=== PATIENT | male | born 1965 | race Caucasian/White ===

== ENCOUNTER → 2017-05-31 09:25 | Outpatient (CLI) | payer OTHER, SELFPAY ==
[2017-05-31 09:53] LABS: Absolute Lymphocyte Count 1.78 X10^3/ul (0.83-4.51); Absolute Neutrophil Count 5.3 X10^3/uL (2.0-7.7); Basophil# 0.04 X10^3/uL; Basophil% 0.5 % (0-1); Eosinophil# 0.35 X10^3/uL; Eosinophils% 4.4 % (0-5); Hemoglobin 14.9 g/dl (13.0-16.5); Lymphocyte # 1.78 X10^3/ul (4.0); Lymphocyte % 22.2 % (19-41); Mean Corp Hgb Conc 33.9 g/gl (32-36); Mean Corpuscular Hgb 30.6 pg (27.0-32.0); Mean Corpuscular Volume 90.3 fL (80-94); Mean Platelet Vol. 9.3 fl (6.2-12.0); Monocyte# 0.57 X10^3/uL; Monocyte% 7.1 % (0-10); Neutrophil # 5.26 X10^3/uL (2.7-7.7); Neutrophil % 65.4 % (47-70); Platelet Count 236 K/mm3 (150-450); RBC Distribution Width CV 13.2 % (11.6-14.6); RBC Distribution Width SD 43.8 fl (35.1-43.9); Red Blood Count 4.87 M/mm3 (4.6-6.2)
[2017-05-31 10:00] LABS: POSITIVE COUNT NO; POSITIVE DIFFERENTIAL NO; POSITIVE MORPHOLOGY NO
[2017-05-31 10:31] LABS: AST(SGOT) 39 U/L (15-37); Alanine Aminotransfer ALT/SGPT 60 U/L (16-61); Albumin, Serum 3.9 g/dL (3.2-5.0); Alkaline Phosphatase 102 U/L (45-117); Anion Gap 6 (5-15); BUN 17 mg/dL (7-18); BUN/Creat Ratio 20.4 RATIO (10-20); Chloride 106 mmol/L (98-107); Cholesterol 274 mg/dL (200); Creatinine, Serum 0.83 mg/dL (0.70-1.30); EST Glomerular Filtration Rate 104 mL/min (>60); Est Glom Filt Rate - Afr Amer 125 mL/min (>60); Globulin 3.9 g/dL (2.2-4.2); Glucose 110 mg/dL (74-106); High Density Lipoprotein 35 mg/dL; Potassium 3.8 mmol/L (3.5-5.1); Protein, Total 7.8 g/dL (6.4-8.2); Sodium Level 140 mmol/L (136-145); Triglycerides 191 mg/dL; Very Low Density Lipoprotein 38 mg/dL (5-40)
== END ==
PROVIDERS: Family Provider Family Medicine; PCP Family Medicine; Visit Provider Family Medicine
DX: I10 Essential (primary) hypertension (principal); R40.0 Somnolence; N52.9 Male erectile dysfunction, unspecified
CPT/HCPCS: 36415; 80053; 80061; 85025

== ENCOUNTER 2017-07-18 05:58 | Day surgery (SDC) | payer OTHER, SELFPAY ==
[2017-07-18] VITALS (15 sets, daily range): BP systolic 115–154; BP diastolic 70–100; PULSE 56–87; RESP 16–18; TEMP 36.1–36.9; O2SAT 82–100; BMI 31.4
--- NOTE | 2017-07-18 | TESH_PTH ---
PATIENT: DINESH BROWN Jr. LOC: [facility] [place] [facility] U#:[id number] AGE/SX: 51/M ROOM: RE07/18/[address]: Dr. Chelita Rahman DO : 1965 BED: DIS: 07/18/2017 SPEC #: [id number] RECD: 07/18/17 10:51 STATUS: DAVID REDylon #: [id number] WENDY: 07/18/17 00:[address]: Chelita Rahman DEPT: SURGICAL PATHOLOGY RECD BY: Tapan Padilla ENTERED: 07/18/17 10:51 SP TYPE: TENDON OTHR DR: Dr. Phylicia Strange, Tissues: Tendon and tendon sheath, NOS Procedures: Surgery Specimen Level III HEADER OPERATION: Right shoulder arthroscopy, subacromial decompression, biceps PRE-OP DIAGNOSIS: Biceps tendonitis, arthrosis of right AC joint TISSUE SUBMITTED: Biceps tendon MICROSCOPIC DIAGNOSIS Biceps tendon: A piece of dense fibroconnective tissue with reactive changes. DUYEN:danny 07/19/17 MICROSCOPIC DESCRIPTION Slides are reviewed. GROSS DESCRIPTION Received in fixative is one container labeled with the patient's name and designated biceps tendon. The specimen consists of an elongated piece of tendinous tissue measuring 5.5 x 0.8 x 0.2 cm. The entire specimen is submitted in one cassette. / DUYEN:danny 07/18/17 TC:4 CPT: 54198
--- NOTE | 2017-07-18 06:10 | EKG12_ITS ---
Test Reason : PRE OP Blood Pressure : / mmHG Vent. Rate : 075 BPM Atrial Rate : 075 BPM P-R Int : 142 ms QRS Dur : 100 ms QT Int : 408 ms P-R-T Axes : 038 022 040 degrees QTc Int : 455 ms Normal sinus rhythm with sinus arrhythmia Normal ECG Confirmed by HÉCTOR PARKER, IRWIN ([id number]), newspaper editor managing AKIL ONEIL ([id number]) on 07/20/2017 2:34:14 PM Referred By: Chelita Rahman Confirmed By:IRWIN ANAYA MD
[2017-07-18] MEDS: Cefazolin 2 GM in 0.9% Normal Saline 100 ML IV (07:21)
--- NOTE | 2017-07-18 07:31 | DCINST_ITS ---
Discharge Diet: No Restrictions - remove dressings in 4 days and apply bandaids to incision sites, may remove sling to do pendulums every hour as tolerated, do not actively flex elbow,follow up in 2 weeks in office or sooner if issues arise , Discharge Activity: May Not Drive May shower in (days): 1 Ice area for (Minutes): 20 - Every hour while awake. Weight Bearing Status: Weight bearing as tolerated Keep extremity elevated above heart level: Operative Extremity Call your doctor if your incision/area has: Continuous Slow Oozing, Sudden Increased Bleeding, Increased Pain/ Swelling, Increased Redness, Foul Smelling Discharge Call your doctor if you observe: Fever of 101 or Higher, Coldness, Increased Pain, Numbness or Tingling, Change in Color, Calf discomfort Allergies/Adverse Reactions: Allergies lisinopril Allergy (Verified 06/21/17 15:24) Anaphylaxis venom-honey bee [bee venom (honey bee)] Allergy (Verified 06/21/17 15:24) Anaphylaxis Medications to take at Discharge Escitalopram Oxalate [Lexapro] 20 mg PO DAILY 10/08/14 Amlodipine [Norvasc] 5 mg PO DAILY #30 tablet 10/10/14 Epinephrine [Epi Pen] 0.3 mg SQ UD #2 syringe 10/10/14 Atorvastatin Calcium [Lipitor] 20 mg PO QHS 07/18/17 Ondansetron [Zofran] 8 mg PO Q8H PRN PRN #20 tab 07/18/17 Oxycodone HCl/Acetaminophen [Percocet 5/325] 1 - 2 tablet PO Q6H PRN PRN 5 Days #56 tablet 07/18/17 Zolpidem Tartrate [Ambien (Generic)] 5 mg PO QHS PRN PRN #14 tablet 07/18/17 The following prescriptions were given: Oxycodone HCl/Acetaminophen [Percocet 5/325] 1 - 2 tablet PO Q6H PRN PRN 5 Days #56 tablet PRN Reason: Pain Ondansetron [Zofran] 8 mg PO Q8H PRN PRN #20 tab PRN Reason: Nausea Zolpidem Tartrate [Ambien (Generic)] 5 mg PO QHS PRN PRN #14 tablet PRN Reason: Insomnia Primary Care Physician: Phylicia Strange DO [Primary Care Provider] - Please Follow Up With: Chelita Rahman, DO - [phone]
--- NOTE | 2017-07-18 07:31 | PCM.OPRPT ---
Report of Operation Date of Procedure: 07/18/17 Pre-Operative Diagnosis: right shoulder Post-Operative Diagnosis: same Surgery/Procedure Performed:: right shoulder arthroscopy Type of Anesthesia:: General/Regional - preop interscalene block Anesthesiologist: Duane Saucedo Specimen's removed: biceps tendon Estimated Blood Loss (mL): none Fluids Replaced: 1100ml lr Description of Procedure: Preoperative note Patient is a 51-year-old male with continued right shoulder pain. Patient failed conservative treatment MRI confirms extensive bursitis. Biceps tendinitis and tendinitis and rotator cuff tendinosis. Risks benefits and alternatives surgery discussed with patient. Risks including but not limited to blood loss, blood clot, infection, neurovascular injury, failure procedure, loss of life and loss of limb. Patient is aware like proceed with right shoulder arthroscopy repair is indicated. Operative note Patient seen and examined in preoperative holding area. Right shoulder was marked. Patient received a preoperative interscalene block. Patient is brought to the operating room and placed supine on the operating room table. Signing, anesthesia, antibiotics were administered. The right shoulder was prepped and draped in usual sterile fashion after beachchair was initiated. Patient [facility] through beachchair position we did recheck his blood pressure which is stable throughout. All bony prominences were well-padded SCDs were placed on his bilateral lower extremity's. And then marked out our bony landmarks for our portal placement. Timeout was performed. We then insufflated the glenohumeral joint from the posterior aspect. We had good outflow. We then used an 11 blade to create our posterior portal. We were then able to begin our diagnostic arthroscopy. We created an anterior portal under direct visualization. The biceps insertion was quite unstable and the labrum incision was frayed. We then inserted a shaver and debrided back the unstable labrum from the anterior to the posterior aspect of the labrum. The rotator cuff was intact there were no loose bodies in the inferior recess the subscapularis anteriorly was intact as well. We then truncated the biceps tendon at its insertion and then reinserted a shaver to gently debride its insertion on the labrum. After this was done we then moved to the subacromial space. We created a lateral portal under direct visualization. There is extensive bursitis throughout. We the combination of an ablator and a shaver to resect the height uremic bursa. We then moved her distal clavicle excision. We created a trans-acromial clavicular portal. We inserted beginning of the shaver and then used a bur and resected just under 7 mm off of the distal clavicle and 3 mm off the acromion. We then co-plane the undersurface as well. We irrigated the subacromial space with copious amounts of sterile saline we coagulated all bleeders. We then moved to her biceps open biceps tenodesis. We reprepped the area and waited the allotted time. We made our incision just distal to the pec insertion. We used a 15 blade to cut through skin and tenotomy dissect down to level of the biceps sheath the biceps sheath was excised the biceps tendon was brought out of the incision with a measure the appropriate length of the biceps with the arm extended truncated the distal port piece and sent that to pathology for further evaluation. We then dissected down to the level of the periosteum used Bovie to clear off soft tissue for our pec button placement. We then oversewed the remaining biceps tendon place her button according to the [employer] pec button system. We drilled unicortical he flipped the button into the humeral shaft and then oversewed the tendon to the. Periosteum with a free needle. The incision was irrigated with copious amounts of sterile saline. The incision was closed with 2-0 Vicryl in a running 4-0 Monocryl and the portals were closed with interrupted 4-0 nylon stitches.. Sterile dressings were applied and a sling was applied. Patient tolerated procedure well and there were no complications. Patient transferred to the recovery room in stable condition. Postoperative note Pharmacy has prescriptions next Pictures given to family Follow-up in 2 weeks Call with increased pain numbness tingling or further issues arise This note was generated with [employer] software. It may contain incorrect words, spelling, and punctuation that were not noted in checking the note before signing.
[2017-07-18] MEDS: Mupirocin Ointment 22gm Tube 1 APPLIC (08:46)
[2017-07-18] MEDS: HYDROcodone Bitartrate/Apap 5/325 Tablet PO (12:14)
== END 2017-07-18 13:39 | disposition home or self-care (01) ==
LOC: SDC 05:59 → AC 06:01
PROVIDERS: Family Provider Family Medicine; PCP Family Medicine; Visit Provider Orthopaedic Surgery
PROC: (CPT 29827; principal; 2017-07-18 07:10)
DX: M75.111 Incomplete rotator cuff tear or rupture of right shoulder, not specified as traumatic (principal); M75.21 Bicipital tendinitis, right shoulder; M19.011 Primary osteoarthritis, right shoulder; G47.30 Sleep apnea, unspecified; I10 Essential (primary) hypertension
CPT/HCPCS: 01630; 29824; 29828; 64450; 88304; 93005; J7120; J2405

== ENCOUNTER 2017-12-06 13:30 | Outpatient (RCR) | payer OTHER, SELFPAY ==
--- NOTE | 2017-07-31 18:52 | HP.PTEVAL_ITS ---
Patient's Visit Information DINESH BROWN JR is a 51 year old M referred to Physical Therapy by Chelita Rahman DO with a diagnosis of R shoulder scope and biceps tenodesis 07/18. Date of Evaluation: 07/31/17 Physical Therapist: Willard Vick DPT, OC - Visit Plan Frequency: 2x /Week Duration: 3 Months Plan: 2x/week for 4 weeks then 1-2x/week for 8 weeks for. PROM elbow and shoulder taking care with biceps tenodesis. Progression of AAROM R shoulder and PROM elbow. Strength of R shoulder and postural muscles avoiding biceps stress for 2-4 more weeks other than gentle isometric. ice as needed. scar massage R biceps incision. - Subjective Subjective: Reattached biceps tendon and scraped out OA in R shoulder. 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 RC was not torn. Surgery date was 07/18/17. Been in sling with abd wedge since. Sleeps with it on. Wears it for protection. Sleeps well but sling is hard to sleep with. Has to wear it for 6 weeks total. Other precautions are if it hurts don 't do it. Works at [employer] but is off until October 14. 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 Pain prior to surgery was bad and waking him up at night. gets dressed by himself but it is a pain. Buttoning is hard. Avoids lifting with R. Is Right handed. Using L hand for ADLs. No ex yet. - Pain R shoulder Pain Intensity (Out of 10): 1 Pain Intensity Range: 0, 5 - Objective R arm in sling with abd wedge at arrival and donned and doffed independently. c /s AROM WFL, scapular AROM slow on R but WFL. Incisions seem to have healed well without any drainage today. biceps incision has moderate scar tissue underneath it palpable. AROM shoulder NT. PROM shoulder to 90 degrees flexion and abd without endfeel, stopped because patient asked. EXT rot to 45 degrees today and IR to 70 passively. Full PROM elbow extension but slow and hesitant last 15 degrees. Flexion is to 50 degrees passively and again hesitant last 10 degrees. wrist adn thumb AROM WFL and strength is good as is complex case manager strength. reflexes NT in elbow. Sensation UE WNL to gross light touch. Holds R arm very gaurded but pain is minimal today. Walks and transfers I without use R UE. L UE AROM WFL and strength 5/5 - Goals Goal 1:: Full PROM R elbow and shoulder Goal Time Frame: 2-4 Weeks Goal 2:: Full aROM R shoulder and elbow Goal Time Frame: 4-6 Weeks Goal 3:: Sleep without interruption or meds and walk with normal swinging motion of B UE. Goal Time Frame: 4-6 Weeks Goal 4:: Patient report 95% improvement in overall condition and plan to return to work Goal Time Frame: 8-12 Weeks Goal 5:: Dress I without modifications Goal Time Frame: 6-8 Weeks - Rehabilitation Potential Physical Therapy Diagnosis: R shoulder scope and bi tenodesis and resulting stiffness and soreness. Rehabilitation Potential: Good - Anticipated Interventions Patient/Client Instruction: Educate patient on: Condition, Plan of Care, Risk Factors For the Purpose of:: To decrease pain, To increase ROM, To improve nutrient delivery to tissue, To improve muscle performance and motor function Therapeutic Exercise to Include: Strength training, Passive ROM, Active ROM, Scapular Strength/Stabilization For the Purpose of:: To decrease pain, To increase ROM, To improve nutrient delivery to tissue, To improve performance and independence with ADL's, To improve ability of physical actions for home/community/work/leisure Manual Therapy Techniques to Include: Scar massage, Passive ROM For the Purpose of:: To increase ROM Cryotherapy (ice pack, ice massage): Yes For the Purpose of:: To decrease swelling/inflammation Thank you for the opportunity to evaluate your patient. For Medicare and Medicare HMO plans, please review the plan of care and approve it. It will need to be FAXED BACK to us at [phone] for Medicare purposes. Please let me know if there are questions or concerns regarding this plan of care. Physician Signature: Date:
--- NOTE | 2017-08-28 11:56 | HP.PTREVAL_ITS ---
Chelita Rahman, DO, It has been my pleasure to treat DINESH BROWN JR over the last 8 visits for R shoulder scope and biceps tenodesis 07/18. Please see the progress note below for an update on the physical therapy plan of care! Subjective: Exercises going OK. Pain 0-5/10 without pattern but better when relaxed. Saw doctor office today and doing well. May wean sling at 6 weeks. They want him to wean ibuprofen. Usually sleeping Ok. HEP: moving it, stick was too painful until today. Objective/Function: 80 active flexiona dn abd limited by pain. PROm flex adn abd 130 and 120 limited by pain again. ext rot 80 and full elbow flex adn ext. Still holds it in elbow flexion and protected. Overall doing OK progressing slowly. Very hesitant to move it. Plan Plan: 2x/week for 6 weeks for AAROM to AROM and strength of tri, shoulder and posture, care with biceps flexion and supination sstarting slowly. Progress in 4 weeks to work specific conditioning as condition allows. Goals Goal 1:: Full PROM R elbow and shoulder Goal Time Frame: 2-4 Weeks Goal Progress: Progressing Goal 2:: Full aROM R shoulder and elbow Goal Time Frame: 4-6 Weeks Goal 3:: Sleep without interruption or meds and walk with normal swinging motion of B UE. Goal Time Frame: 4-6 Weeks Goal 4:: Patient report 95% improvement in overall condition and plan to return to work Goal Time Frame: 8-12 Weeks Goal 5:: Dress I without modifications Goal Time Frame: 6-8 Weeks Anticipated Interventions Patient/Client Instruction: Educate patient on: Condition, Plan of Care, Risk Factors For the Purpose of:: To decrease pain, To increase ROM, To improve nutrient delivery to tissue, To improve muscle performance and motor function Therapeutic Exercise to Include: Strength training, Passive ROM, Active ROM, Scapular Strength/Stabilization For the Purpose of:: To decrease pain, To increase ROM, To improve nutrient delivery to tissue, To improve performance and independence with ADL's, To improve ability of physical actions for home/community/work/leisure Manual Therapy Techniques to Include: Scar massage, Passive ROM For the Purpose of:: To increase ROM Cryotherapy (ice pack, ice massage): Yes For the Purpose of:: To decrease swelling/inflammation Please do not hesitate to contact me at [phone] by phone or Fax: if you have questions or concerns regarding this new plan of care! Sincerely, Willard Vick, DPT, OC
--- NOTE | 2017-10-09 16:24 | HP.PTREVAL_ITS ---
Chelita Rahman, DO, It has been my pleasure to treat DINESH BROWN JR over the last 15 visits for R shoulder scope and biceps tenodesis 07/18. Please see the progress note below for an update on the physical therapy plan of care! Subjective: Saw doctor an she is very happy. 6 more weeks off of work and strengthening. / soreness today...feeling pretty good. Sleep is only interrupted sometimes. Back to doctor in 6 weeks. Dressing is normal and mobility is good. Using GTB at home for 2x10 Objective/Function: Full AROM without pain, LLA at 90 degrees give slight discomfort on flex adn abduction. Strength in elevated position of rotations is 3+ er adn 4- IR. Some wincing at 90 degree LLA abd. OVERALL DOING VERY WELL. NEEDS TO BE STRONGER OH FOR SAFE RETURN TO WORK. See new goal, fair prognosis. Plan Plan: WEEKLY TO PROGRESS HEP OF OH STRENGTH. NEXT SESSION OH ROTATIONS. Goals Goal 1:: Full PROM R elbow and shoulder Goal Time Frame: 2-4 Weeks Goal Progress: Goal Met Goal 2:: Full aROM R shoulder and elbow Goal Time Frame: 4-6 Weeks Goal Progress: Goal Met Goal 3:: Sleep without interruption or meds and walk with normal swinging motion of B UE. Goal Time Frame: 4-6 Weeks Goal Progress: Goal Met Goal 4:: Patient report 95% improvement in overall condition and plan to return to work Goal Time Frame: 8-12 Weeks Goal 5:: Dress I without modifications Goal Time Frame: 6-8 Weeks Goal Progress: Goal Met Goal 6:: pLAN TO RETURN TO WORK SAFELY WITH 4/5 oh ROTATION STRENGTH AND LIFT 40 # oh WITH TWO HANDS Goal Time Frame: 6-8 Weeks Goal Progress: NEW GOAL Anticipated Interventions Patient/Client Instruction: Educate patient on: Condition, Plan of Care, Risk Factors For the Purpose of:: To decrease pain, To increase ROM, To improve nutrient delivery to tissue, To improve muscle performance and motor function Therapeutic Exercise to Include: Strength training, Passive ROM, Active ROM, Scapular Strength/Stabilization For the Purpose of:: To decrease pain, To increase ROM, To improve nutrient delivery to tissue, To improve performance and independence with ADL's, To improve ability of physical actions for home/community/work/leisure Manual Therapy Techniques to Include: Scar massage, Passive ROM For the Purpose of:: To increase ROM Cryotherapy (ice pack, ice massage): Yes For the Purpose of:: To decrease swelling/inflammation Please do not hesitate to contact me at [phone] by phone or Fax: if you have questions or concerns regarding this new plan of care! Sincerely, Willard Vick, DPT, OC
--- NOTE | 2017-11-22 11:20 | HP.PTREVAL ---
Chelita Rahman, DO, It has been my pleasure to treat DINESH BROWN JR over the last 19 visits for R shoulder scope and biceps tenodesis 07/18. Please see the progress note below for an update on the physical therapy plan of care! Subjective: Saw doctor Sunday. Gets anpther 6 weeks off. Pain is OK at 1-2/10 this week, doc says that is normal. Needs more overhead strength. Sleep is OK. Life is normal at home, hunting and house work feel fine. 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 Doc wants him to be stronger OH for RTW. Objective/Function: Full aROM withotu discomfort. 5/5 strength in neutral position of elbow and rotators. At 90 degrees is 4/5 adn OH gives some pain R shoulder with flexion and abd as wella s at 90 degrees. Plan Plan: 1x/week for 6 weeks...Please answer any questions on home ex each visit and progress to machine and dumbbell based OH strength in PT adn WB strength/bodyblade Goals Goal 1:: Full PROM R elbow and shoulder Goal Time Frame: 2-4 Weeks Goal Progress: Goal Met Goal 2:: Full aROM R shoulder and elbow Goal Time Frame: 4-6 Weeks Goal Progress: Goal Met Goal 3:: Sleep without interruption or meds and walk with normal swinging motion of B UE. Goal Time Frame: 4-6 Weeks Goal Progress: Goal Met Goal 4:: Patient report 95% improvement in overall condition and plan to return to work Goal Time Frame: 8-12 Weeks Goal Progress: Progressing Goal 5:: Dress I without modifications Goal Time Frame: 6-8 Weeks Goal Progress: Goal Met Goal 6:: pLAN TO RETURN TO WORK SAFELY WITH 4/5 oh ROTATION STRENGTH AND LIFT 40# oh WITH TWO HANDS Goal Time Frame: 6-8 Weeks Goal Progress: Progressing Anticipated Interventions Patient/Client Instruction: Educate patient on: Condition, Plan of Care, Risk Factors For the Purpose of:: To decrease pain, To increase ROM, To improve nutrient delivery to tissue, To improve muscle performance and motor function Therapeutic Exercise to Include: Strength training, Passive ROM, Active ROM, Scapular Strength/Stabilization For the Purpose of:: To decrease pain, To increase ROM, To improve nutrient delivery to tissue, To improve performance and independence with ADL's, To improve ability of physical actions for home/community/work/leisure Manual Therapy Techniques to Include: Scar massage, Passive ROM For the Purpose of:: To increase ROM Cryotherapy (ice pack, ice massage): Yes For the Purpose of:: To decrease swelling/inflammation Please do not hesitate to contact me at [phone] by phone or if you have questions or concerns regarding this new plan of care! Sincerely, Willard Vick, DPT, OC
--- NOTE | 2017-12-28 12:48 | HP.PT.NRP ---
HP - Discharge Summary (1) - Patient Information DINESH BROWN JR was seen in my office for initial evaluation on 07/31/17. The following Plan of Care was established for this patient: Initial Frequency: 2x /Week Initial Duration: 3 Months - Anticipated Interventions Patient/Client Instruction: Educate patient on: Condition, Plan of Care, Risk Factors For the Purpose of:: To decrease pain, To increase ROM, To improve nutrient delivery to tissue, To improve muscle performance and motor function Therapeutic Exercise to Include: Strength training, Passive ROM, Active ROM, Scapular Strength/Stabilization For the Purpose of:: To decrease pain, To increase ROM, To improve nutrient delivery to tissue, To improve performance and independence with ADL's, To improve ability of physical actions for home/community/work/leisure Manual Therapy Techniques to Include: Scar massage, Passive ROM For the Purpose of:: To increase ROM Cryotherapy (ice pack, ice massage): Yes For the Purpose of:: To decrease swelling/inflammation This patient was last seen in our office 12/06/17. Pertinent comments regarding their Physical therapy will appear below: Pt seen 21 visits for his postrugical diagnosis adn was progressing nicely. He has not shown up for his last three visits. He was planning on a return to work around this time at his last recheck. at this point, he is I in appropriate HEP and I will discontinue due to nonattendance. At this point I will be discontinuing this patient from physical therapy. I would be happy to see this patient again in the future if found appropriate by the physician. Thank you! Willard Vick, DPT, OC
--- NOTE | 2018-01-04 13:05 | HP.PTDCSUM ---
HP - PT D/C Summary It has been my pleasure to treat DINESH BROWN JR under orders from Chelita Rahman DO, for the diagnosis of R shoulder scope and biceps tenodesis 07/18 for a total of 21 visit(s). Discharge Date: 01/04/18 Please see the following information for a summary of their discharge status. - Subjective Subjective: Doing OK, rough night last night for no apparent reason but has been good lately. HEP daily at home and going well. - Pain R shoulder Pain Intensity (Out of 10): 0 - Overall Improvement % Improvement: 80 - Objective Objective/Function: Pt has no showed last 4 visits since last reevaluation. At that time, he was doing well and considering a return to work. i will disocntinue him at this time due to nonattendance. - Goals Goal 1:: Full PROM R elbow and shoulder Goal Progress: Goal Met Goal 2:: Full aROM R shoulder and elbow Goal Progress: Goal Met Goal 3:: Sleep without interruption or meds and walk with normal swinging motion of B UE. Goal Progress: Goal Met Goal 4:: Patient report 95% improvement in overall condition and plan to return to work Goal Progress: Progressing Goal 5:: Dress I without modifications Goal Progress: Goal Met Goal 6:: pLAN TO RETURN TO WORK SAFELY WITH 4/5 oh ROTATION STRENGTH AND LIFT 40# oh WITH TWO HANDS Goal Progress: Progressing - Plan Plan: continue OH strength - D/C Information Discharge Comments: Discontinue due to nonattendance of last 4 visits since last recheck. If there are questions or concerns regarding this patient's physical therapy, please feel free to call me at [phone]. Thank you for the referral of this patient. Sincerely, Willard Vick, DPT, OC
== END 2017-12-06 19:00 | disposition home or self-care (01) ==
LOC: PT 13:30
PROVIDERS: Family Provider Family Medicine; PCP Family Medicine; Visit Provider Orthopaedic Surgery
DX: Z98.890 Other specified postprocedural states (principal)
CPT/HCPCS: 97110; 97140; 97162; 97530

== ENCOUNTER → 2018-09-13 10:35 | Outpatient (CLI) | payer OTHER, SELFPAY ==
[2018-09-13 12:48] LABS: AST(SGOT) 45 U/L (15-37); Alanine Aminotransfer ALT/SGPT 89 U/L (16-61); Albumin, Serum 3.7 g/dL (3.2-5.0); Alkaline Phosphatase 95 U/L (45-117); Cholesterol 259 mg/dL (200); High Density Lipoprotein 37 mg/dL; Protein, Total 7.7 g/dL (6.4-8.2); Triglycerides 176 mg/dL; Very Low Density Lipoprotein 35 mg/dL (5-40)
== END ==
LOC: LAB.FUTURE 10:38
PROVIDERS: Family Provider Family Medicine; PCP Family Medicine; Visit Provider Family Medicine
DX: I10 Essential (primary) hypertension (principal); E78.5 Hyperlipidemia, unspecified
CPT/HCPCS: 36415; 80061; 80076

== ENCOUNTER 2018-10-28 09:50 | Emergency (ER) | payer OTHER, SELFPAY ==
[2018-10-28 09:51] VITALS: BP 148/103; PULSE 83; RESP 17; TEMP 36.7; O2SAT 99; BMI 33.5
--- NOTE | 2018-10-28 10:23 | CT_ITS ---
STUDY: CT ABDOMEN AND PELVIS WITH CONTRAST REASON FOR EXAM: Male, 52 years old. Multiple weeks of abdominal pain RADIATION DOSAGE (If Supplied By Facility): CTDIvol = ( 17.96 ) mGy, DLP = ( 1173.97 ) mGycm TECHNIQUE: Transaxial images were obtained from the dome of the diaphragm to the symphysis pubis with oral contrast. IV/Oral Isovue 300 100 was administered. Sagittal and coronal images were reconstructed. Individualized dose optimization techniques were used for this CT. COMPARISON: None. FINDINGS: The visualized lung bases are unremarkable aside from a 5 mm noncalcified nodule in the right lung base on axial image 8.. The visualized portions of the heart are within normal limits. There is decreased attenuation of the liver consistent with steatosis. Normal gallbladder and extrahepatic biliary system. Normal spleen. Normal pancreas. Normal bilateral adrenal glands. No obstructive uropathy, there are stable bilateral renal cysts Normal visualized stomach. Normal small intestine. Normal colon. There is non-visualization of the appendix. There is diffuse atherosclerotic calcification of the abdominal aorta, without a demonstrated aneurysm. Normal inferior vena cava. Normal retroperitoneum. Normal urinary bladder. There are prostatic calcifications. Normal abdominal wall. Normal osseous structures. CT/Abdomen/Pelvis WITH Contrast IMPRESSION: 5 mm noncalcified nodule in the right lung base No suspicious solid organ abnormality, simple renal cysts No CT evidence of an acute inflammatory process Electronically Signed: Byron Ash MD at 12:29 EDT , Service support ,
--- NOTE | 2018-10-28 10:24 | ED.DCSUM_ITS ---
- ER Visit Summary Date of Service: 10/28/18 Chief Complaint: Abdominal pain History of Present Illness: The patient is a 52 M presenting with abdominal pain. Patient states this started 2 to 3 weeks ago. He states that it started gradually and has continued to worsen. Pain is in the lower abdomen. He has tried Tylenol at home with no relief. He denies nausea, vomiting, diarrhea. Denies constipation. Denies blood in his stool. Denies urinary complaints. Denies fever. Denies scrotal or testicular pain. Denies chest pain or shortness of breath. Physical Examination: Vitals are stable. Patient is afebrile. Alert no acute distress. HEENT exam is unremarkable. Neck is supple. Lungs are clear and equal bilaterally. Heart is regular rate and rhythm. Abdomen is soft bilateral lower quadrant tenderness with no guarding or rebound Extremities are unremarkable. Skin is warm and dry. No focal neurologic deficit. Remainder of exam is unremarkable. Emergency Department Course and Treatment: Patient given IV fluids, morphine, Zo chana IV. CBC, chemistries unremarkable other than glucose 147, BUN 21. Lipase 428. Urinalysis unremarkable. CT abdomen pelvis shows 5 mm noncalcified nodule in the right lung base. No suspicious solid organ abnormality, simple renal cysts. No CT evidence of an acute inflammatory process. Patient was advised of these findings and advised to follow-up with his primary care physician. On reevaluation, he is resting comfortably and requesting discharge home. He is given prescription for Bentyl. Advised to follow-up with his primary care physician. Advised to return to ED for worsening complaints. Disposition: Discharge home Impression: Abdominal pain This note was generated with [employer] dictation software. It may contain incorrect words, spelling, and punctuation that were not noted in review of the chart prior to signing ED Disposition - Plan for ED Patient: Instructions: ABDOMINAL PAIN, Unkown Cause, (Male) Prescriptions: Dicyclomine HCl [Bentyl] 20 mg PO TIDAC #20 cap Prescription Printed Referrals: Dee Dee Fall MD [Primary Care Provider] -
[2018-10-28 10:38] LABS: Red Blood Cells-Urine 0 SEEN /hpf (0-5); Squamous Epithelial Cells - UA 0 SEEN /hpf (0-5); White Blood Cells 0 SEEN /hpf (0-5)
[2018-10-28 10:42] LABS: Color, Urine Yellow (Yellow); Glucose, Dipstick Normal (Normal); Ketone-Dipstick Negative (Negative); Leukocyte Esterase-Dipstick Negative /ul (Negative); Nitrite-Dipstick Negative (Negative); Occult Blood-Urine Negative /ul (Negative); Protein-Dipstick 500 mg/dl (Negative); Specific Gravity, Urine 1.025 (1.002-1.030); Urine Bilirubin Dipstick Negative (Negative); Urine Clarity Sl. Cloudy (Clear); Urine Urobilinogen Normal (Normal)
[2018-10-28 10:48] LABS: Bacteria RARE /hpf (None Seen); Mucous, Urine 1+ /hpf (<or=2+)
[2018-10-28] MEDS: 0.9% Normal Saline 1,000 ML 1000 ML IV (10:52)
[2018-10-28] MEDS: Morphine 4 MG/ML Syringe IV (10:52)
[2018-10-28] MEDS: Ondansetron 4 MG/2 ML Vial IV (10:53)
[2018-10-28 10:55] LABS: Absolute Lymphocyte Count 2.09 X10^3/uL (0.83-4.51); Absolute Neutrophil Count 5.8 X10^3/uL (2.0-7.7); Basophil# 0.06 X10^3/uL; Basophil% 0.7 % (0-1); Eosinophil# 0.26 X10^3/uL; Eosinophils% 2.9 % (0-5); Hematocrit 44.5 % (40-54); Hemoglobin 14.6 g/dL (13.0-16.5); Lymphocyte # 2.09 X10^3/ul (4.0); Lymphocyte % 23.6 % (19-41); Mean Corp Hgb Conc 32.8 g/dL (32-36); Mean Corpuscular Hgb 29.5 pg (27.0-32.0); Mean Corpuscular Volume 89.9 fL (80-94); Mean Platelet Vol. 9.5 fl (6.2-12.0); Monocyte% 6.8 % (0-10); NRBC Flagged by Analyzer 0 % (0-5); Neutrophil # 5.76 X10^3/uL (2.7-7.7); Neutrophil % 65.2 % (47-70); Platelet Count 209 K/mm3 (150-450); RBC Distribution Width CV 12.9 % (11.6-14.6); RBC Distribution Width SD 42.3 fl (35.1-43.9); Red Blood Count 4.95 M/mm3 (4.6-6.2); White Blood Count 8.8 K/mm3 (4.4-11.0)
[2018-10-28 11:14] LABS: ALB/GLOB Ratio 0.8 RATIO (0.9-2.4); AST(SGOT) 36 U/L (15-37); Alanine Aminotransfer ALT/SGPT 58 U/L (16-61); Albumin, Serum 3.6 g/dL (3.2-5.0); Alkaline Phosphatase 100 U/L (45-117); Anion Gap 8 (5-15); BUN 21 mg/dL (7-18); BUN/Creat Ratio 25.3 RATIO (10-20); Calcium,Total 8.7 mg/dL (8.5-10.1); Chloride 108 mmol/L (98-107); Creatinine, Serum 0.83 mg/dL (0.70-1.30); EST Glomerular Filtration Rate 103 mL/min (>60); Est Glom Filt Rate - Afr Amer 125 mL/min (>60); Estimated Creatinine Clearance 98.44 ml/min; Globulin 4.3 g/dL (2.2-4.2); Glucose 147 mg/dL (74-106); Lipase 428 U/L (73-393); Potassium 3.6 mmol/L (3.5-5.1); Protein, Total 7.9 g/dL (6.4-8.2); Sodium Level 143 mmol/L (136-145)
--- NOTE | 2018-10-28 14:46 | ED.DEP ---
ED Disposition - Plan for ED Patient: Instructions: ABDOMINAL PAIN, Unkown Cause, (Male) Prescriptions: Dicyclomine HCl [Bentyl] 20 mg PO TIDAC #20 capsule Referrals: Dee Dee Fall MD [Primary Care Provider] -
[2018-10-28 14:53] VITALS: RESP 18
== END 2018-10-28 14:54 | disposition home or self-care (01) ==
PROVIDERS: Emergency Provider Emergency Medicine; Family Provider Family Medicine; PCP Family Medicine
DX: R10.30 Lower abdominal pain, unspecified (principal); I10 Essential (primary) hypertension; E78.00 Pure hypercholesterolemia, unspecified; F32.9 Major depressive disorder, single episode, unspecified; Z79.899 Other long term (current) drug therapy
CPT/HCPCS: 74177; 80053; 81001; 83690; 85025; 96361; 96374; 96375; 99284; J7030; Q9967; J2405

== ENCOUNTER → 2018-11-08 | Outpatient (CLI) | payer OTHER, SELFPAY ==
[2018-10-28 09:51] VITALS: BMI 33.5
[2018-11-08 14:53] LABS: Absolute Lymphocyte Count 1.62 X10^3/uL (0.83-4.51); Absolute Neutrophil Count 5.1 X10^3/uL (2.0-7.7); Basophil# 0.04 X10^3/uL; Basophil% 0.5 % (0-1); Eosinophil# 0.36 X10^3/uL; Eosinophils% 4.6 % (0-5); Hematocrit 47.3 % (40-54); Hemoglobin 15.2 g/dL (13.0-16.5); Lymphocyte # 1.62 X10^3/ul (4.0); Lymphocyte % 20.6 % (19-41); Mean Corp Hgb Conc 32.1 g/dL (32-36); Mean Corpuscular Hgb 29.5 pg (27.0-32.0); Mean Corpuscular Volume 91.7 fL (80-94); Monocyte# 0.71 X10^3/uL; NRBC Flagged by Analyzer 0 % (0-5); Neutrophil % 64.9 % (47-70); Platelet Count 231 K/mm3 (150-450); RBC Distribution Width CV 12.9 % (11.6-14.6); RBC Distribution Width SD 43.7 fl (35.1-43.9); Red Blood Count 5.16 M/mm3 (4.6-6.2); White Blood Count 7.9 K/mm3 (4.4-11.0)
[2018-11-08 15:34] LABS: ALB/GLOB Ratio 0.9 RATIO (0.9-2.4); AST(SGOT) 26 U/L (15-37); Alanine Aminotransfer ALT/SGPT 52 U/L (16-61); Albumin, Serum 3.7 g/dL (3.2-5.0); Alkaline Phosphatase 104 U/L (45-117); Anion Gap 5 (5-15); BUN 16 mg/dL (7-18); BUN/Creat Ratio 20.7 RATIO (10-20); Calcium,Total 8.7 mg/dL (8.5-10.1); Chloride 109 mmol/L (98-107); Creatinine, Serum 0.77 mg/dL (0.70-1.30); EST Glomerular Filtration Rate 112 mL/min (>60); Est Glom Filt Rate - Afr Amer 136 mL/min (>60); Globulin 4.2 g/dL (2.2-4.2); Glucose 115 mg/dL (74-106); Potassium 3.4 mmol/L (3.5-5.1); Protein, Total 7.9 g/dL (6.4-8.2); Rheumatoid Factor < 10.0 IU/mL (<15); Sodium Level 144 mmol/L (136-145)
[2018-11-08 17:16] LABS: Hepatitis B Surface Antibody Non-Reactive; Hepatitis B Surface Antigen Non-Reactive (Nonreactive); Hepatitis C Antibody Non-Reactive (Nonreactive)
[2018-11-12 13:06] LABS: CCP IgG Antibodies 11 units (0-19)
== END | disposition home or self-care (01) ==
LOC: LAB 14:32
PROVIDERS: Family Provider Family Medicine; PCP Family Medicine; Referring Provider Internal Medicine Rheumatology; Visit Provider Internal Medicine Rheumatology
DX: M06.4 Inflammatory polyarthropathy (principal); I10 Essential (primary) hypertension; E03.9 Hypothyroidism, unspecified; F32.9 Major depressive disorder, single episode, unspecified; G47.33 Obstructive sleep apnea (adult) (pediatric)
CPT/HCPCS: 36415; 80053; 85025; 86200; 86431; 86706; 86803; 87340

== ENCOUNTER → 2018-12-06 | Outpatient (CLI) | payer OTHER, SELFPAY ==
[2018-12-06 08:38] VITALS: BMI 33.5
[2018-12-06 13:00] LABS: AST(SGOT) 17 U/L (15-37); Alanine Aminotransfer ALT/SGPT 36 U/L (16-61); Albumin, Serum 3.5 g/dL (3.2-5.0); Alkaline Phosphatase 101 U/L (45-117); Bilirubin, Direct 0.07 mg/dL (0.00-0.30); Cholesterol 182 mg/dL (200); High Density Lipoprotein 43 mg/dL; Protein, Total 7.5 g/dL (6.4-8.2); Triglycerides 122 mg/dL; Very Low Density Lipoprotein 24 mg/dL (5-40)
== END | disposition home or self-care (01) ==
LOC: LAB.FUTURE 09:17
PROVIDERS: Family Provider Family Medicine; PCP Family Medicine; Visit Provider Family Medicine
DX: I10 Essential (primary) hypertension (principal); E78.5 Hyperlipidemia, unspecified
CPT/HCPCS: 36415; 80061; 80076

== ENCOUNTER 2018-12-27 06:04 | Day surgery (SDC) | payer OTHER, SELFPAY ==
[2018-12-06 08:38] VITALS: BMI 33.5
--- NOTE | 2018-12-06 08:45 | HP_ITS ---
Intake Vital Signs 12/06/18 Body Mass Index (BMI) 33.5 12/06/18 Height 5 ft 6 in 12/06/18 Weight: 208 lb 12/06/18 Body Mass Index (BMI) 33.5 12/06/18 Blood Pressure 142/90 H 12/06/18 Blood Pressure Location Rt brachial 12/06/18 Blood Pressure Position Sitting 12/06/18 Respiratory Rate 18 12/06/18 Pulse Rate 77 12/06/18 Pulse Source Monitor 12/06/18 Temperature 97.8 F 12/06/18 Temperature Source Oral 12/06/18 Pulse Ox 99 12/06/18 Oxygen Delivery Method room air Intake Visit Reasons: ABD PAIN Speech And Language Tutor Required: No Is patient in pain?: Yes Allergies lisinopril Allergy (Verified 12/06/18 08:35) Anaphylaxis venom-honey bee [bee venom (honey bee)] Allergy (Verified 12/06/18 08:35) Anaphylaxis Medications Escitalopram Oxalate [Lexapro] 20 mg PO DAILY 10/08/14 [History Confirmed 12/06/18] Amlodipine [Norvasc] 5 mg PO DAILY #30 tab 10/10/14 [Rx Confirmed 12/06/18] Epi Pen (for allergic rxn) [Epi Pen] 0.3 mg SQ UD #2 syringe 10/10/14 [Rx Confirmed 12/06/18] Atorvastatin Calcium [Lipitor] 20 mg PO QHS 07/18/17 [History Confirmed 12/06/18] prednisone 10 mg tablet 10 mg PO DAILY 12/06/18 [History Confirmed 12/06/18] ropinirole 0.25 mg tablet 0.25 mg PO QHS 12/06/18 [History Confirmed 12/06/18] [facility] Medical History Abdominal pain (Acute) Arthritis (Acute) History of back problems (Acute) Hypertension (Chronic) Depression (Acute) Surgical History History of foot surgery (Acute) History of tracheostomy (Acute) s/p right shoulder surgery (Acute) Family History Mother Arthritis Depression Social History (Updated 12/06/18 @ 08:45 by Jez Covington MD) Smoking Status: Former smoker alcohol intake: current alcohol intake frequency: holidays/special occasions only Alcohol type: beer, wine substance use type: does not use HPI HPI HPI: DINESH BROWN, is a 53 M who presents to the office today for HPI HPI Surgical H&P: Yes HPI: DINESH BROWN, is a 53 M who presents to the office today for For screening colonoscopy. Patient states that he has not been moving his bowels as normally. He had an episode of abdominal pain approximately a month and a half ago where he went to the emergency department where a CAT scan was obtained which was entirely normal. His girlfriend says that he has not been passing as much gas as normal. Patient states that the abdominal pain started approximately a month and a half ago but is not really sure that he was doing anything when it did. He has no triggers for the cause. ROS General General: Yes fatigue; no weight change, appetite, colon cancer, breast cancer or weakness HEENT HEENT: No difficulty swallowing, eye injury, eye surgery, swollen glands or hoarseness Endo Endocrine: No thyroid disease, diabetes mellitus, thyroid cancer, Hair loss, heat intolerance or cold intolerance Skin Skin: No rash or changing moles Breast Breast: No left breast lump, right breast lump, nipple discharge, breast pain, abnormal mammogram, abnormal US or breast enlargement Musc Musculoskeletal: Yes back problems, arthritis and rheumatoid arthritis; no gout or joint pain Cardio Cardiovascular: Yes high blood pressure; no murmur, pacemaker, heart disease, atrial fibrillation, heart attack, heart stent, palpitations, shortness of breat with exertion or chest pain Psych Psychiatric: Yes depression; no anxiety or hearing voices Resp Respiratory: No shortness of breath, No sleep apnea, No cough, No COPD, No asthma, No emphysema, No wheezing Gastro Gastrointestinal: Yes abdominal pain, No nausea or vomiting, No diarrhea, No constipation, No blood in stool, No acid reflux, No hemorrhoids, No ulcers, No gallbladder problem, No black,tarry stools Geoff Hematologic: Yes blood thinners, No blood disorders, No bleeding, No anemia, No blood clots Neuro Neurologic: No system reviewed and no additional complaints, except as docu, No as per HPI, No abnormal walking, No abnormal hearing, No abnormal movements, No abnormal speech, No behavioral changes, No burning sensations, No confusion, No seizure-like activity, No unsteadiness, No dizziness, No localized weakness, No frequent falls, No headache(s), No lack of coordination, No loss of vision, No memory loss, No numbness, No other visual disturbances, No radiating pain, No restless legs, No sensory deficit, No fainting, No tingling, No tremor(s), No weakness, No other Exam Const General: no acute distress, well developed, well hydrated Orientation: oriented to person, oriented to place, oriented to time [facility] Head: normocephalic, atraumatic Ears: external ears normal Mouth: moist mucous membranes Eyes Sclera: sclerae normal Pupils: normal by confrontation Neck Neck: no lymphadenopathy noted Neck mass: No Thyroid: thyroid normal, symmetrical Chest Chest palpation & inspection: normal inspection of the chest Breast Palpation: No nipple discharge Resp Effort & Inspection: normal respiratory effort Auscultation: clear to auscultation bilaterally Percussion: percussion normal Cardio Rate: regular rate Rhythm: regular rhythm Heart Sounds: no murmurs GI Palpation: soft, no hepatosplenomegaly, no masses, tender Rectal Exam: other Other: A small umbilical hernia is identified that is easily reducible Rectal exam deferred. Extrem General: normal to inspection, no clubbing, cyanosis or edema Assessment & Plan Problems 1. Screening for colon cancer Z12.11 Plan I have discussed the above with the patient. I have offered the patient colonoscopy for evaluation. I have explained the risks/benefits of the procedure and described the procedure. I have discussed the risks with the patient, including but not limited to: infection, bleeding, perforation of the GI tract requiring emergency surgery, inability to complete the procedure, injury to any internal organs, complications of anesthesia, etc. - the patient understands and agrees to proceed. I have answered all the patient's questions to the patient's satisfaction and the patient has no further questions. The patient has been given instructions for the colon cleansing preparation. Coding Level of Care Code Off vis,new,level 3 Diagnoses Screening for colon cancer Z12.11 12/06/18 0845 <Electronically signed by Jez quigley MD> Date _ Jez Covington MD I have re-examined the patient. There are no clinical changes since date of exam.
[2018-12-27] VITALS (7 sets, daily range): BP systolic 97–142; BP diastolic 65–87; PULSE 63–89; RESP 16–18; TEMP 36.1–36.9; O2SAT 95–99; BMI 32.1
[2018-12-27] MEDS: Lactated Ringers 1,000 ML 100 ML IV (06:57)
--- NOTE | 2018-12-27 07:36 | OP.COLON_ITS ---
Patient Name: Saw Zabala Procedure Date: 12/27/2018 7:03 AM Date of : 1965 Age: 53 Procedure: Colonoscopy Indications: Screening for colorectal malignant neoplasm Providers: Jez Covington MD Referring MD: eJz Covington MD Medicines: See the Anesthesia note for documentation of the administered medications Patient Profile: This is a 53 year old male. Refer to note in patient chart for documentation of history and physical. Last Colonoscopy: none. The patient's first colonoscopy is today. Complications: No immediate complications. Procedure: Pre-Anesthesia Assessment: - Prior to the procedure, a History and Physical was performed, and patient medications and allergies were reviewed. The patient's tolerance of previous anesthesia was also reviewed. The risks and benefits of the procedure and the sedation options and risks were discussed with the patient. All questions were answered, and informed consent was obtained. Prior Anticoagulants: The patient has taken no previous anticoagulant or antiplatelet agents. ASA Grade Assessment: II - A patient with mild systemic disease. After reviewing the risks and benefits, the patient was deemed in satisfactory condition to undergo the procedure. After I obtained informed consent, the scope was passed under direct vision. Throughout the procedure, the patient's blood pressure, pulse, and oxygen saturations were monitored continuously. The colonoscope was introduced through the anus and advanced to the cecum, identified by appendiceal orifice and ileocecal valve. The colonoscopy was performed without difficulty. The patient tolerated the procedure well. The quality of the bowel preparation was adequate to identify polyps 6 mm and larger in size. Scope In: 7:19:04 AM Scope Withdrawal Time 0 hours 7 minutes 11 seconds Scope Out: 7:31:03 AM Total Procedure Duration Time 0 hours 11 minutes 59 seconds Findings: Non-bleeding internal hemorrhoids were found during retroflexion. The hemorrhoids were mild and small. The exam was otherwise without abnormality. Impression: - Preparation of the colon was fair. - Non-bleeding internal hemorrhoids. - The examination was otherwise normal. - No specimens collected. Recommendation: - Discharge patient to home. - Resume previous diet. - Continue present medications. - Repeat colonoscopy in 5 years because the bowel preparation was suboptimal. - Return to primary care physician (date not yet determined). Procedure Code(s): --- Professional --- 43210, Colonoscopy, flexible; diagnostic, including collection of specimen(s) by brushing or washing, when performed (separate procedure) Diagnosis Code(s): --- Professional --- Z12.11, Encounter for screening for malignant neoplasm of colon K64.8, Other hemorrhoids CPT copyright 2017 [employer]. All rights reserved. The codes documented in this report are preliminary and upon medical insurance coder review may be revised to meet current compliance requirements. MD Jez Browning MD 12/27/2018 7:35:33 AM This report has been signed electronically. Number of Addenda: 0 Note Initiated On: 12/27/2018 7:03 AM
== END 2018-12-27 08:11 | disposition home or self-care (01) ==
LOC: EN 06:04 → AC 06:05
PROVIDERS: Family Provider Family Medicine; PCP Family Medicine; Referring Provider Surgery; Visit Provider Surgery
PROC: 0DJD8ZZ Inspection of Lower Intestinal Tract, Via Natural or Artificial Opening Endoscopic (ICD-10-PCS; CPT 45378; principal; 2018-12-27 06:55)
DX: Z12.11 Encounter for screening for malignant neoplasm of colon (principal); K64.8 Other hemorrhoids; Z87.891 Personal history of nicotine dependence; Z79.899 Other long term (current) drug therapy; I10 Essential (primary) hypertension; F32.9 Major depressive disorder, single episode, unspecified; M19.90 Unspecified osteoarthritis, unspecified site
CPT/HCPCS: 45378; J7120; J1610; J2405

== ENCOUNTER → 2019-02-07 15:03 | Outpatient (CLI) | payer OTHER, SELFPAY ==
[2018-12-27 06:44] VITALS: BMI 32.1
[2019-02-07 17:09] LABS: Absolute Neutrophil Count 4.8 X10^3/uL (2.0-7.7); Basophil# 0.05 X10^3/uL; Basophil% 0.6 % (0-1); Hematocrit 47.3 % (40-54); Hemoglobin 15.5 g/dL (13.0-16.5); Lymphocyte % 23.9 % (19-41); Mean Corp Hgb Conc 32.8 g/dL (32-36); Mean Corpuscular Volume 91.5 fL (80-94); Mean Platelet Vol. 9.6 fl (6.2-12.0); Monocyte# 0.71 X10^3/uL; Monocyte% 8.9 % (0-10); NRBC Flagged by Analyzer 0 % (0-5); Neutrophil # 4.84 X10^3/uL (2.7-7.7); Neutrophil % 61.1 % (47-70); Platelet Count 236 K/mm3 (150-450); RBC Distribution Width CV 13.9 % (11.6-14.6); RBC Distribution Width SD 46.6 fl (35.1-43.9); Red Blood Count 5.17 M/mm3 (4.6-6.2); White Blood Count 7.9 K/mm3 (4.4-11.0)
[2019-02-07 17:32] LABS: AST(SGOT) 25 U/L (15-37); Alanine Aminotransfer ALT/SGPT 56 U/L (16-61); Albumin, Serum 3.9 g/dL (3.2-5.0); Alkaline Phosphatase 102 U/L (45-117); Anion Gap 6 (5-15); BUN 13 mg/dL (7-18); BUN/Creat Ratio 17.5 RATIO (10-20); Calcium,Total 8.7 mg/dL (8.5-10.1); Chloride 105 mmol/L (98-107); Creatinine, Serum 0.74 mg/dL (0.70-1.30); EST Glomerular Filtration Rate 117 mL/min (>60); Est Glom Filt Rate - Afr Amer 142 mL/min (>60); Globulin 4.1 g/dL (2.2-4.2); Glucose 80 mg/dL (74-106); Potassium 3.5 mmol/L (3.5-5.1); Sodium Level 139 mmol/L (136-145)
== END ==
LOC: LAB 15:05
PROVIDERS: Family Provider Family Medicine; PCP Family Medicine; Referring Provider Internal Medicine Rheumatology; Visit Provider Internal Medicine Rheumatology
DX: M06.4 Inflammatory polyarthropathy (principal); I10 Essential (primary) hypertension; E03.9 Hypothyroidism, unspecified; F32.9 Major depressive disorder, single episode, unspecified; G47.33 Obstructive sleep apnea (adult) (pediatric); Z79.899 Other long term (current) drug therapy
CPT/HCPCS: 36415; 80053; 85025

== ENCOUNTER → 2019-03-07 09:33 | Outpatient (CLI) | payer OTHER, SELFPAY ==
[2018-12-27 06:44] VITALS: BMI 32.1
--- NOTE | 2019-03-07 09:37 | RAD_ITS ---
STUDY: SMALL BOWEL FOLLOW-THROUGH EXAMINATION. REASON FOR EXAM: Male, 53 years old. ABDOMEN PAIN X3 MONTHS. FLUOROSCOPY TIME (if supplied): ( 2 minutes and 13 seconds ) minutes/seconds TECHNIQUE: The patient ingested barium. A small bowel follow-through examination was obtained. COMPARISON: None. FINDINGS: The small bowel transit is normal. There is no evidence of intrinsic or extrinsic small bowel disease. The terminal ileum is unremarkable. IMPRESSION: Unremarkable small bowel examination. Electronically Signed: Marcus Waldrop, at 14:16 EST , Service support , CLINICAL HISTORY: Male, 53 years old. 3 month history of abdominal pain. PROCEDURE: The patient ingested barium. Multiple images of the esophagus, stomach and duodenum were obtained. FLUOROSCOPY TIME (if supplied): (2 minutes and 13 seconds.) minutes/seconds Findings: The esophagus is unremarkable. There is no evidence of esophageal obstruction. No mass lesion is seen. The stomach and duodenum are unremarkable. No evidence of ulceration. No mass lesions present. RAD/Upper GI/w Small Bowel IMPRESSION: Unremarkable air contrast upper GI series. Electronically Signed: Marcus Waldrop, at 14:19 EST , Service support ,
== END ==
LOC: RAD 09:34
PROVIDERS: PCP Family Medicine; Referring Provider Family Medicine; Visit Provider Family Medicine
DX: R10.9 Unspecified abdominal pain (principal)
CPT/HCPCS: 74246; 74248

== ENCOUNTER → 2019-04-11 16:04 | Outpatient (CLI) | payer OTHER, SELFPAY ==
[2018-12-27 06:44] VITALS: BMI 32.1
[2019-04-11 17:08] LABS: Absolute Lymphocyte Count 1.61 X10^3/uL (0.83-4.51); Absolute Neutrophil Count 3.9 X10^3/uL (2.0-7.7); Basophil# 0.05 X10^3/uL; Basophil% 0.8 % (0-1); Eosinophil# 0.31 X10^3/uL; Eosinophils% 4.8 % (0-5); Hematocrit 45.6 % (40-54); Hemoglobin 14.9 g/dL (13.0-16.5); Lymphocyte # 1.61 X10^3/ul (4.0); Lymphocyte % 24.9 % (19-41); Mean Corp Hgb Conc 32.7 g/dL (32-36); Mean Corpuscular Hgb 30.9 pg (27.0-32.0); Mean Corpuscular Volume 94.6 fL (80-94); Mean Platelet Vol. 9.8 fl (6.2-12.0); Monocyte# 0.62 X10^3/uL; Monocyte% 9.6 % (0-10); NRBC Flagged by Analyzer 0 % (0-5); Neutrophil # 3.85 X10^3/uL (2.7-7.7); Neutrophil % 59.6 % (47-70); Platelet Count 208 K/mm3 (150-450); RBC Distribution Width CV 13.6 % (11.6-14.6); RBC Distribution Width SD 46.5 fl (35.1-43.9); Red Blood Count 4.82 M/mm3 (4.6-6.2); White Blood Count 6.5 K/mm3 (4.4-11.0)
[2019-04-11 17:45] LABS: AST(SGOT) 25 U/L (15-37); Alanine Aminotransfer ALT/SGPT 45 U/L (16-61); Albumin, Serum 3.7 g/dL (3.2-5.0); Alkaline Phosphatase 90 U/L (45-117); BUN 16 mg/dL (7-18); BUN/Creat Ratio 17.8 RATIO (10-20); Calcium,Total 8.7 mg/dL (8.5-10.1); Chloride 106 mmol/L (98-107); EST Glomerular Filtration Rate 94 mL/min (>60); Est Glom Filt Rate - Afr Amer 114 mL/min (>60); Globulin 3.8 g/dL (2.2-4.2); Glucose 132 mg/dL (74-106); Potassium 3.6 mmol/L (3.5-5.1); Protein, Total 7.5 g/dL (6.4-8.2); Sodium Level 141 mmol/L (136-145)
[2019-04-11 17:46] LABS: Anion Gap 5 (5-15)
== END ==
PROVIDERS: PCP Family Medicine; Referring Provider Internal Medicine Rheumatology; Visit Provider Internal Medicine Rheumatology
DX: M06.4 Inflammatory polyarthropathy (principal); I10 Essential (primary) hypertension; E03.9 Hypothyroidism, unspecified; F32.9 Major depressive disorder, single episode, unspecified; G47.33 Obstructive sleep apnea (adult) (pediatric); Z79.899 Other long term (current) drug therapy
CPT/HCPCS: 36415; 80053; 85025

== ENCOUNTER → 2019-06-18 16:44 | Outpatient (CLI) | payer OTHER, SELFPAY ==
[2018-12-27 06:44] VITALS: BMI 32.1
[2019-06-18 17:43] LABS: Absolute Lymphocyte Count 1.41 X10^3/uL (0.83-4.51); Absolute Neutrophil Count 4.7 X10^3/uL (2.0-7.7); Basophil# 0.05 X10^3/uL; Basophil% 0.7 % (0-1); Eosinophil# 0.28 X10^3/uL; Hematocrit 42.7 % (40-54); Hemoglobin 14.4 g/dL (13.0-16.5); Lymphocyte # 1.41 X10^3/ul (4.0); Mean Corp Hgb Conc 33.7 g/dL (32-36); Mean Corpuscular Hgb 31.4 pg (27.0-32.0); Mean Platelet Vol. 9.6 fl (6.2-12.0); Monocyte# 0.62 X10^3/uL; Monocyte% 8.8 % (0-10); NRBC Flagged by Analyzer 0 % (0-5); Neutrophil # 4.66 X10^3/uL (2.7-7.7); Neutrophil % 66.1 % (47-70); Platelet Count 216 K/mm3 (150-450); RBC Distribution Width CV 13.9 % (11.6-14.6); RBC Distribution Width SD 46.5 fl (35.1-43.9); Red Blood Count 4.59 M/mm3 (4.6-6.2); White Blood Count 7.1 K/mm3 (4.4-11.0)
[2019-06-18 18:07] LABS: AST(SGOT) 29 U/L (15-37); Alanine Aminotransfer ALT/SGPT 51 U/L (16-61); Albumin, Serum 3.7 g/dL (3.2-5.0); Alkaline Phosphatase 93 U/L (45-117); Anion Gap 6 (5-15); BUN 18 mg/dL (7-18); BUN/Creat Ratio 15.7 RATIO (10-20); Calcium,Total 9.6 mg/dL (8.5-10.1); Chloride 106 mmol/L (98-107); Creatinine, Serum 1.15 mg/dL (0.70-1.30); EST Glomerular Filtration Rate 71 mL/min (>60); Est Glom Filt Rate - Afr Amer 86 mL/min (>60); Globulin 3.7 g/dL (2.2-4.2); Glucose 132 mg/dL (74-106); Potassium 3.4 mmol/L (3.5-5.1); Protein, Total 7.4 g/dL (6.4-8.2); Sodium Level 143 mmol/L (136-145)
--- OUTSIDE RECORDS SUMMARY | 2019-11-18 10:11 | XMS RPT_ITS | CCD ---
:1965 External Reference #:[id number] Author Organization [facility] Care Team Providers Name Role Phone SHERRY LI) Unavailable Unavailable TONY Unavailable Unavailable SHERRY LI) Unavailable Unavailable TONY Unavailable Unavailable TONY Unavailable Unavailable TONY Unavailable Unavailable TONY Unavailable Unavailable TONY Unavailable Unavailable TONY Unavailable Unavailable Rishabh OG Unavailable Unavailable Rishabh OG Unavailable Unavailable Allergies Reported Allergen Reaction(s) Severity Date of Onset Location [facility] Translations: [ AOF 10-24-2016 - Cl [facility] BEE STING] Cornelius Reposito ry NO KNOWN ALLERGIES [facility] Translations: [ NO KNOWN Cam pus Repository ALLERGIES] Problems Active Problems Category Problem Name Status Date Location Unclassified Unknown / UNK(Unknown) Active 11-07-2016 - [facility] ([id number]) Past or Other Problems Category Problem Name Status Date Location Other injuries and Unspecified injury of Completed 10-24-2016 - [facility] conditions due to right ankle, [place] ([id number]) external causes subsequent encounter Results Result Name Value Range Unit Interpretation Flag Date Location progress on 2016-11 PROGRESS HNO ID: [id number]: Ni Conklin 11-15-2016 [facility] Bobby MaService: (none)Author Type: [place] ([id number]) (none)Type: Progress NotesFiled: 11/15/2016 3:44 PMNote Text:PT ASSESSMENT - CASTING ROOMWilliam presents for Application of brace.Applied DonJoy Stabilizing speed Pro ankle brace to Right ankle. Patienttolerated well.Patient has been instructed in Care and proper application of brace.Patient signed DonJoy PPA electronically for billing. Patient verbalizedunderstanding.Ni Rosales Ma PROGRESS HNO ID: [id number]: Steve Conklin 11-15-2016 [facility] Emy Reyes: (none)Author Type: [place] ([id number]) PhysicianType: Progress NotesFiled: 11/15/2016 2:39 PMNote Text:FRACTURE FOLLOW-UPMrAlvaro Brown presents today for his follow-up visit from:right ankle injuryHe is four weeks post-injury and was last seen one week ago.History: his pain intensity is improved from last week, still sore tostand or walk. He is walking without fracture boot, but limps and uses acane.He reports no change in past medical AND surgical history, medications,allergies, social history, family history and review of systems since lastvisit, with the exception of the following:NonePhysical Examination:mild tenderness about the medial malleolusmoderate tenderness about the syndesmosismild tenderness about the achilles tendon insertionPositive EHL, FHL, AT, GS, Quads, and HSPositive distal pulsesNegative Rogerio's, calf tenderness or palpable cordsImpression:ankle sprain- rightsmall avulsion fracture medial talusPlan:fit for GelSight ankle brace to wear when returning to workcontinue ankle rehab exercises as directed.Follow-up:as neededDO marco Negron on 2016-11-15 CNJAIDEN Office Visit Normal 11-15-2016 Jennifer and (HANANE) ----SAW BROWN JR ([id number]) 1965 M Date Time Provider Aacffhdire32/11/17 2:20 PM STEVE REYES During Cl vickie your visit today, we recorde d the following information about you:Steve Reyes DO 11/15/2016 ([id number]) 2:39 PM SignedFRACTNAYELI RuedaAlvaro Brown presents today for his follow-up visit from:right ankle injuryHe is four weeks post- injury and was last seen one week ago.History: his pain intensity is improved from last week, sti ll sore to stand orwalk. He is walking without fracture boot, but limps and uses a cane.He reports no change in past medical ANDamp; surgical history, medications,allergies, socia l history, family history and review of systems since lastvisit, with the exception of the followi ng:NonePhysical Examination:mild tenderness about the medial malleolusmoderate tenderness about the syndesmosismild tenderness about the achilles tendon insertionPositive EHL, FHL, AT, GS, Quads, and HSPositive distal pulsesNegative Rogerio's, calf tenderness or palpable cords Impression:ankle sprain- rightsmall avulsion fracture medial talusPlan:fit for [employer] ankle brace to wear when returning to workcontinue ankle rehab exercises as directed.Follow -up:as neededJesusita Negron Ma 11/15/2016 3:44 PM SignedPT ASSESSMENT - ROLANDA Durán presents for Application of brace.Applied DonJoy Stabilizing speed Pro ankle brace to Right ankle. Patienttolerated well.Patient has been instructed in Care and proper applicati on of brace. Patientsigned DonJoy PPA electronically for billing. Patient verbalized understveto aly.Ni Goldsmith Provider: STEVE REYES V [[id number]]Allergies As of Date: 11/15/2016 Noted Allergy ReactionBEE STING 10/24/2016 10 - Anaphylaxis Comments: Yellow jackmikeDate Reviewed: 11/07/2016Reviewed by: Kaylee Krishna Ma - Fully AssessedPrimary Visit Diagno sis:Sprain of ligament of right ankle, subsequent encounter [S93.401D]Prescriptions as o f 11/15/2016 Sig: EPINEPHRINE 0.3 MG/0.3 ML INJ* Inject 0.3 mL intramuscularly* AMLODIPINE 5 MG TABLET DEXTROAMPHETAMINE-AMPHETAMINE* Take 30 mg by mouth once kae* ESCITALOPRAM 20 MG TAB LET Take 20 mg by mouth once kae* HYDROCODONE 5 MG-ACETAMINOPHE* Take 1 tablet by mouth every * IB UPROFEN 800 MG TABLETProblem List As Of Date 11/15/2016 Noted Resolved Cervicalgia [M54.2] INVALID FOR* Backache, unspecified [M54.9] INVALID FOR* Osteoarthrosis involving, or with mention o f mo*INVALID FOR* Left shoulder pain [M25.512] INVALID FOR*Letter TextWoosterDepartment of Ort fungwwjy[address], [place] [id number] WHOM IT MAY CONCERN:This is to confirm t hat Saw Brown JR had an appointment [facility] Za Vitale [facility]/15/2016 and farzad to work on 11/20/2016 with no restrictions.Sincerely yours ,Steve Reyes DOEncounter Number: [id number] Status:Closed by STEVE REYES DO V on 11/15/16 xr ankle 3v ap/lat/obl rt on 2016-11-07 XR ANKLE 3V * * *Final Report* * *DATE OF Normal 11-07-2016 [place] AP/LAT/OBL RT EXAM: Nov 07 2016 10:06AM [facility] 5297 - XR ANKLE 3V AP/LAT/OBL RT [place] / ([id number]) REASON: Unspecified injury of right ankle, subsequent encounter * * * * Physician Interpretation * * * * HISTORY: Trauma. Ankle painCOMPARISON: Comparison is made to prior ankle study dated 10/24/2016RESULT: Frontal, lateral and oblique views of the right ankle demonstrate bimalleolar soft tissue swelling. There is no underlying bony abnormality. The ankle mortise and syndesmosis are intact.IMPRESSION: Negative fracture. Bimalleolar soft tissue swelling.Assembly Supervisor: HUSAM Transcribe Date/Time: Nov 07 2016 3:08PDictated by : GILBERTO ALAMO MDThis examination was interpreted and the report reviewed and electronically signed by: GILBERTO ALAMO MD on Nov 07 2016 3:09PM [id number] progress on 2016-11 PROGRESS HNO ID: [id number]: Diane Conklin 11-07-2016 [facility] StobbeService: (none)Author Amol ([id number]) Type: (none)Type: Progress NotesFiled: 11/07/2016 10:07 AMNote Text: Radiology Service Progress NotePATIENT NAME: Saw Brown JRMRN: [id number] OF SERVICE: November 07, 2016TIME: 10:06 AMPATIENT IDENTITY VERIFICATION COMPLETED USING TWO (2) METHODS: Patientconfirmed name verbally and Date of .PATIENT GENDER DATA: MalePATIENT RELEVANT IMPLANT DATA REVIEWED: Not ApplicableRADIOLOGY DEPARTMENT: General X-ray: Exam(s) Completed: Lower ExtremityX-Ray(s): Ankle, Right:PERIPHERAL IV DATA: Not applicableSIGNED BY: Diane Torres RT(R)November 07, 2016 10:06 AM PROGRESS HNO ID: [id number]: Steveguerita Conklin 11-07-2016 [facility] Noel Reyesice: (none)Author Amol ([id number]) Type: PhysicianType: Progress NotesFiled: 11/07/2016 10:55 AMNote Text:FRACTURE FOLLOW-UPMrAlvaro Brown presents today for his follow-up visit from:Right ankleHe is 3 weeks and 6days post-injury and was last seen three weeks ago.History: his pain intensity is 4/10. The patient denies swelling, warmth,discharge, drainage, fevers, chills, sweats. He reports compliance withtherapy, sling/splint/ambulatory device/dressing/wound care, and the useof medications.He reports no change in past medical AND surgical history, medications,allergies, social history, family history and review of systems since lastvisit, with the exception of the following:NoneRadiographs:Physic al Examination:mild tenderness about the medial malleolusmoderate tenderness about the lateral malleolusmild tenderness about the talar domePositive EHL, FHL, AT, GS, Quads, and HSPositive distal pulsesNegative Rogerio's, calf tenderness or palpable cordsImpression:Right ankle sprain with injury to ATF and CF ligamentsclosed fracture talus with no displacementPlan:continue in fracture bootmay graduate off of crutches as symptoms allowbegin ROM exercises- handout givenrecheck in 1 week.Steve Reyes DO PROGRESS HNO ID: [id number]: Kaylee Conklin 11-07-2016 [facility] Erendira MaService: (none)Author Amol ([id number]) Type: (none)Type: Progress NotesFiled: 11/07/2016 10:55 AMNote Text:AMB ROOMING INTAKE FLOWSHEET DATARisk ScreeningDo you have concerns about personal safety or safety in the home?: NoPainPain Score: 4/10Pain Location: Ankle-RightDescription: Aching, ThrobbingDuration Amount of Time: (ongoing)Frequency: IntermittentIntervention: SplintingPatient here today for 3 week 6 days post right ankle sprain. Arriveswith walking boot and using crutches. Still having a good bit of swelling. cnov on 2016-11-07 CNOV Office Visit Normal 11-07-2016 Jennifer and (HANANE) ----SAW BROWN JR ([id number]) 1965 M Date Time Provider Kmasejamaz35/3/17 9:00 AM [facility] we recorde d the following information about you:Kaylee Krishna Ma 11/07/2016 10:55 ([id number]) AM SignedAMB ROOMING INTAKE FLOWSHEET DATARisk ScreeningDo you have concerns about personal safety or safety in the home?: NoPa inPain Score: 4/10Pain Location: Ankle- RightDescription: Aching, ThrobbingDuration Amount of Time: (ongoing)Frequency: IntermittentIntervention: SplintingPatient here today for 3 week 6 days post right ankle sprain. Arrives withwalking boot and using crutches. Still having a good bit of s welling.Steve Reyes DO 11/07/2016 10:55 AM SignedFRACTURE FOLLOW-UPMrAlvaro Brown presents today for his follow-up visit from:Right ankleHe is 3 weeks and 6days post-injury and was last see n three weeks ago.History: his pain intensity is 4/10. The patient denies swelling, warmth,disc harge, drainage, fevers, chills, sweats. He reports compliance withtherapy, sling/splint/am bulatory device/dressing/wound care, and the use ofmedications.He reports no change in past me dical ANDamp; surgical history, medications,allergies, social history, family history and review of systems since lastvisit, with the exception of the following:NoneRadiographs:Ph ysical Examination:mild tenderness about the medial malleolusmoderate tenderness about the lateral malleolusmild tenderness about the talar domePositive EHL, FHL, AT, GS, Quads, and HSPositive di stal pulsesNegative Rogerio's, calf tenderness or palpable cordsImpression:Right ankle sprain with injury to ATF and CF ligamentsclosed fracture talus with no displacementPlan:continue in fracture bootmay graduate off of crutches as symptoms allowbegin ROM exercises- handout givenrec tabatha in 1 week.Mine Negron Provider: STEVE REYES V [[id number]]Allergies As of Date: 11/07/2016 Noted Allergy ReactionBEE STING 10/24/2016 10 - Anaphylaxis Comments: Yellow jacketsDate Reviewed: 11/07/2016Reviewed by: Kaylee Krishna Ma - Fully AssessedReason for Visit: Es tablished Patient [175] Cmt: 3 week 6 days post right ankle sprainPrimary Visit Diagnosi s:Closed avulsion fracture of right talus, with routine healing, subsequent encounter [S92.15 1D] Other Visit Diagnosis:Sprain of ligament of right ankle, subsequent encounter [S93.401D]Prescriptions as of 11/07/2016 Sig: AMLODIPINE 5 MG TABLET DEXTROAMPHETAMINE-AMPHETAMIN E* Take 30 mg by mouth once kae* ESCITALOPRAM 20 MG TABLET Take 20 mg by mouth once kae* IBUPROFE N 800 MG TABLET EPINEPHRINE 0.3 MG/0.3 ML INJ* Inject 0.3 mL intramuscularly* HYDROCODONE 5 MG-ACETAMINOPHE* Take 1 tablet by mouth every *Medication notes this encounter HYDROCODONE 5 MG-A CETAMINOPHEN 325 MG TABLET >> Kaylee Krishna Ma 11/07/2016 9:45 AM >> KAYLEE KRISHNA MA Nov 9:45 AM Course completed.Problem List As Of Date 11/07/2016 Noted Resolved Cervicalgia [ M54.2] INVALID FOR* Backache, unspecified [M54.9] INVALID FOR* Osteoarthrosis involving, or with mention of mo*INVALID FOR* Left shoulder pain [M25.512] INVALID FOR* 203Encounter Status:Closed by TONY STEVE Sarah on 11/07/16 xr ankle 3v ap/lat/obl rt on 2016-10-24 XR ANKLE 3V * * *Final Report* * *DATE OF Normal 10-24-2016 [facility] AP/LAT/OBL RT EXAM: Oct 24 2016 11:00AM [facility] 5297 - XR ANKLE 3V AP/LAT/OBL RT [place] / ([id number]) REASON: Unspecified injury of left ankle, subsequent encounter * * * * Physician Interpretation * * * * HISTORY: Pt rolled his right ankle x 1 week ago. Continued right lateral ankle pain.. Unspecified injury of left ankle, subsequent encounter .TECHNIQUE: XR ANKLE 3V AP/LAT/OBL RT Laterality: RIGHT Number of different views (projections): 3COMPARISON: NoneRESULT:There is a tiny area of mineralization near the lateral margin of the talus just below the lateral malleolus. Ankle mortise alignment appears preserved. There is soft tissue swelling especially near the lateral malleolus.-IMPRESSION:Soft tissue swelling especially laterally. Possible small avulsion fracture from the lateral aspect of the talus.Assembly Supervisor: HUSAM Transcribe Date/Time: Oct 24 2016 2:36PDictated by : SANCHO KEMP MDThithi examination was interpreted and the report reviewed and electronically signed by: SANCHO KEMP MD on Oct 24 2016 2:38PM [id number] progress on 2016-10 PROGRESS HNO ID: [id number]: Kaylee Kingston Normal 10-24-2016 [facility] Erendira MaService: (none)Author Amol ([id number]) Type: (none)Type: Progress NotesFiled: 10/24/2016 11:41 AMNote Text:PT ASSESSMENT - CASTING ROOMWilliam presents for Application of boot.Applied high fracture walker to Right foot. Patient electronicallysigned Alejandro DIEGO.Patient has been instructed in Care and proper application of brace.Printed instructions were sent home with patient.Kaylee Krishna Ma PROGRESS HNO ID: [id number]: Leah Tyler Normal 10-24-2016 [facility] (Rt) Arcelia Galvez: Amol ([id number]) (none)Author Type: TechnicianType: Progress NotesFiled: 10/24/2016 10:50 AMNote Text: Radiology Service Progress NotePATIENT NAME: Saw Brown JRMRN: [id number] OF SERVICE: October 24, 2016TIME: 10:35 AMPATIENT IDENTITY VERIFICATION COMPLETED USING TWO (2) METHODS: Patientconfirmed name verbally and Date of .PATIENT GENDER DATA: MalePATIENT RELEVANT IMPLANT DATA REVIEWED: Not ApplicableRADIOLOGY DEPARTMENT: General X-ray: Exam(s) Completed: Lower ExtremityX-Ray(s): Ankle, Right:PERIPHERAL IV DATA: Not applicableSIGNED BY: Leah Galvez, RTSept2016 10:35 AM PROGRESS HNO ID: [id number]: Steve Conklin 10-24-2016 [facility] Noel Reyesice: (none)Author Amol ([id number]) Type: PhysicianType: Progress NotesFiled: 10/24/2016 11:32 AMNote Text:HPI:Saw Brown JR presents with a chief complaint of pain over the RightAnkle. Relating it occurred 6 days ago when he was at home, stepped outof his shed onto a role of tar paper and rolled his ankle, and has beenpainful since that time. Mr. Brown further relates aching pain is worsewith ambulation and improved with rest. He has been seen in the ER.X-rays were negative for fracture(s)..ROS:Constitutional: denies N/V/F.Eyes, Ears, Nose AND Throat: denies blurred vision, difficulty eating ortinnitus.Cardiovascular: denies MD, murmurs, HTNGI: denies diarrhea / constipationGU: denies incontinence / polyuriaDermatology: no ulcers or open lesionsMusculoskeletal: see HPIRespiratory: denies asthma; emphysema; pneumoniaPsychiatric: denies anxiety; depressionEndocrine: denies thyroid disease or diabetes.PMH:No past medical history on file.MEDICATIONS:Current Outpatient Prescriptions:EPINEPHrine (EPIPEN, AUVI-Q) 0.3 mg/0.3 mL auto-injector Inject 0.3 mLintramuscularly as needed. Disp: Rfl: 0amLODIPine (NORVASC) 5 mg tablet Disp: Rfl: 0dextroamphetamine-amphetamine (ADDERALL XR) 30 mg 24 hr capsule Take 30 mgby mouth once daily. Disp: Rfl: 0escitalopram oxalate (LEXAPRO) 20 mg tablet Take 20 mg by mouth oncedaily. Disp: Rfl: 0HYDROcodone-acetaminophen (NORCO) 5-325 mg per tablet Take 1 tablet bymouth every 6 hours as needed. Disp: Rfl: 0ibuprofen (MOTRIN) 800 mg tablet Disp: Rfl: 0No current facility-administered medications for this visit.ALLERGIES:ALLERGIESAllergen Reactions- Bee Sting Anaphylaxis Yellow jacketsLOWER EXTREMITY EXAM:VASC:Palpable pedal pulses bilateral; skin temperature warm to cool fromproximal tuberosity to distal digits. Edema noted on Right Ankle. Pedalhair growth noted bilateral.DERM:Ecchymosis around the lateral heel / ankle and around the medical heel /ankle and there is no evidence of skin tissue breakdown noted at thistime. No interdigital maceration or open lesions noted.ORTHO:Pain on palpation over the ATFL, distal fibula of the Right Ankle area.Pain with dorsiflexion / plantarflexion of the foot and inversion /eversion of the foot of affected ankle. Anterior draw test is negative.Palpation over the 5th metatarsal base produced no pain. ROM of ankle /foot on contralateral side WI within normal limits.NEURO:Able to discern between light and dull touch. Protective sensation usingSWMF 5.07 is within normal limits. Vibratory sensation tested over 1stMTPJ b/l are within normal limits.RADIOGRAPH:No acute fractures noted, medial, lateral and anterior gutter spacecongruous.ASSESSMENT:Right Ankle sprain with injury to the ATFL.TREATMENT:Reviewed x-ray findings and treatment options with patient., Weightbearing staus: Patient allowed to be weight bearing on affected side infracture boot and F/U in 2 weeks for re-evaluation, future plans mayconsist of Physical Therapy consultSteve Reyes, DO PROGRESS HNO ID: [id number]: Kaylee Kingston Normal 10-24-2016 [facility] Erendira MaService: (none)Author Amol ([id number]) Type: (none)Type: Progress NotesFiled: 10/24/2016 11:32 AMNote Text:AMB ROOMING INTAKE FLOWSHEET DATARisk ScreeningDo you have concerns about personal safety or safety in the home?: NoPainPain Score: 610Pain Location: Ankle-RightDescription: ThrobbingDuration Amount of Time: 6Duration Units: DaysFrequency: ContinuousIntervention: MedicationPatient here today for evaluation of right ankle sprain x 6 days. Stateshe rolled his ankle when coming out of his shed. [facility]. No [facility] x-ray. He has been using CHRISTOPH wrapfor compression and walking with assistance of crutches. Has been nonweight bearing. cnov on 2016-10-24 CNOV Office Visit Normal 10-24-2016 Jennifer and (HANANE) ----SAW BROWN JR ([id number]) 1965 M Date Time Provider Department10/24/16 9:40 AM STEVE REYES During Caitlyn cordova your visit today, we recorde d the following information about you:Kaylee Krishna Ma 10/24/2016 11:32 ([id number]) AM SignedAMB ROOMING INTAKE FLOWSHEET DATARisk ScreeningDo you have concerns about personal safety or safety in the home?: NoPa inPain Score: 6/10Pain Location: Ankle-RightDescription: ThrobbingDuration Amount of Time: 6Duration Units: DaysFrequency: ContinuousIntervention: MedicationPatient here today for evaluation of right ankle sprain x 6 days. States herolled his ankle when coming out of his shed. He was seen at [facility] ER and thenagain at Urgent Care. No [facility] x-ray. He has been using CHRISTOPH wrap forcompression and walking with assistance of crutches. Has been non weightbearing.Steve escoto DO 10/24/2016 11:32 AM SignedHPI:Saw Brown JR presents with a chief complaint of pain ov er the RightAnkle. Relating it occurred 6 days ago when he was at home, stepped out of hisshed onto a role of tar paper and rolled his ankle, and has been painful sincethat time. Mr. Vj patel relates aching pain is worse with ambulation andimproved with rest. He has been seen in e ER. X-rays were negative forfracture(s)..ROS:Constitutional: denies N/V/F.Eyes, Ears, Nose ANDam p; Throat: denies blurred vision, difficulty eating ortinnitus.Cardiovascular: d enies MD, murmurs, HTNGI: denies diarrhea / constipationGU: denies incontinence / polyuriaDerma tology: no ulcers or open lesionsMusculoskeletal: see HPIRespiratory: denies asthma; emphysema; pn eumoniaPsychiatric: denies anxiety; depressionEndocrine: denies thyroid disease or diabetes.PMH:No p ast medical history on file.MEDICATIONS:Current Outpatient Prescriptions:EPINEPHrine (E PIPEN, AUVI-Q) 0.3 mg/0.3 mL auto-injector Inject 0.3 mLintramuscularly as needed. Disp: Rfl: 0amLOD IPine (NORVASC) 5 mg tablet Disp: Rfl: 0dextroamphetamine-amphetamine (ADDERALL XR) 30 mg 24 hr ca psule Take 30 mg bymouth once daily. Disp: Rfl: 0escitalopram oxalate (LEXAPRO) 20 mg tablet Take 20 mg by mouth once daily.Disp: Rfl: 0HYDROcodone- acetaminophen (NORCO) 5-325 mg per tablet Take 1 t ablet by mouthevery 6 hours as needed. Disp: Rfl: 0ibuprofen (MOTRIN) 800 mg tablet Disp: Rfl: 0No current facility-administered medications for this visit.ALLERGIES:ALLERGIESAll ergen Reactions- Bee Sting Anaphylaxis Yellow jacketsLOWER EXTREMITY EXAM:VASC:Palpable pedal pul ses bilateral; skin temperature warm to cool from proximaltuberosity to distal digits. Edema noted o n Right Ankle. Pedal hair growthnoted bilateral.DERM:Ecchymosis around the lateral heel / ankle and around the medical heel / ankleand there is no evidence of skin tissue breakdown noted at this time . Nointerdigital maceration or open lesions noted.ORTHO:Pain on palpation over the ATFL, dis dustin fibula of the Right Ankle area.Pain with dorsiflexion / plantarflexion of the foot a nd inversion / eversion ofthe foot of affected ankle. Anterior draw test is negative. Palpation overthe 5th metatarsal base produced no pain. ROM of ankle / foot on contralateralside WI within normal limits.NEURO:Able to discern between light and dull touch. Protective sensation using S WMF5.07 is within normal limits. Vibratory sensation tested over 1st MTPJ b/l arewithin normal li mits.RADIOGRAPH:No acute fractures noted, medial, lateral and anterior gutter space congruous.ASSES SMENT:Right Ankle sprain with injury to the ATFL.TREATMENT:Reviewed x-ray findings and treatment options with patient., Weight bearingstaus: Patient allowed to be weight bearing on affected s kalani in fracture bootand F/U in 2 weeks for re- evaluation, future plans may consist of PhysicalThera py consultGem Negron Ma 10/24/2016 11:41 AM SignedPT ASSESSMENT - ROLANDA Durán presents for Application of boot.Applied high fracture walker to Right foot. David fields electronically signedDon Myrna DIEGO.Patient has been instructed in Care and proper application of br christoph. Printedinstructions were sent home with patient.Kaylee Goldsmith Provider: MAXX LI ([facility]) [[id number]]Allergies As of Date: 10/24/2016 Noted Allergy ReactionBEE STING 10/24/2016 10 - Anaphylaxis Comments: Yellow jacketsDate Reviewed: 10/24/2016Reviewed by: Kaylee Krishna Ma - Fully AssessedReason for Visit: New Patient [172] Cmt: Right ankle sprain REF: Maninder Estrada ingPrimary Visit Diagnosis:Sprain of ligament of right ankle, subsequent encounter [S93.40 1D] Other Visit Diagnosis:Ankle injury, left, subsequent encounter [S99.912D]Order(s):XR ANKLE GENERAL 3V AP/LAT/OBL RT [[id number]] Order #: [id number] FUTUREPrescriptions as of Sig: EPINEPHRINE 0.3 MG/0.3 ML INJ* Inject 0.3 mL intramuscularly* AMLODIPINE 5 MG TABLET DEXTROAMPHETAMINE-AMPHETAMINE* Take 30 mg by mouth once kae* ESCITALOPRAM 20 MG TAB LET Take 20 mg by mouth once kae* HYDROCODONE 5 MG-ACETAMINOPHE* Take 1 tablet by mouth every * IB UPROFEN 800 MG TABLETProblem List As Of Date 10/24/2016 Noted Resolved Cervicalgia [M54.2] INVALID FOR* Backache, unspecified [M54.9] INVALID FOR* Osteoarthrosis involving, or with mention o f mo*INVALID FOR* Left shoulder pain [M25.512] INVALID FOR* Status:Closed by STEVE REYES DO, V on 10/24/16 progress on 2016-10 PROGRESS HNO ID: [id number]: aMxx (Ivory) Rubin 10-22-2016 [place] Flynn: (none)Author Type: Nurse Clinic PractitionerType: Progress NotesFiled: [place]au 10/22/2016 2:01 PMNote Text:HPIHPI ([id number]) Saw Brown JR is a 50 year old male who presents today for CC ofsprain of right ankle.3 days ago and was seen in ER, had xray performedand no brake. Swelling and pain are worse now than was when happened.Denies numbness/tingling in right foot/ankleReview of SystemsConstitutional: Negative for chills, fever and weight loss.No past medical history on file.No past surgical history on file.ALLERGIES Review of patient's allergies indicates no known allergies.MEDICATIONSamLODIPine (NORVASC) 5 mg tabletdextroamphetamine-amphetamine (ADDERALL XR) 30 mg 24 hr capsule Take 30 mgby mouth once daily.escitalopram oxalate (LEXAPRO) 20 mg tablet Take 20 mg by mouth oncedaily.HYDROcodone-acetaminophen (NORCO) 5-325 mg per tablet Take 1 tablet bymouth every 6 hours as needed.ibuprofen (MOTRIN) 800 mg tabletNo family history on file.Social HistorySubstance Use Topics- Smoking status: Former Smoker- Smokeless tobacco: Not on file- Alcohol use Not on fileBlood pressure 132/92, pulse 78, temperature 36.8 ?C (98.3 ?F),temperature source Tympanic, resp. rate 18, weight 90.3 kg (199 lb).Physical ExamMusculoskeletal: Right ankle: He exhibits decreased range of motion and swelling. Heexhibits no ecchymosis, no deformity, no laceration and normal pulse.Tenderness. Lateral malleolus, medial malleolus, AITFL, CF ligament,posterior TFL and head of 5th metatarsal tenderness found. No proximalfibula tenderness found. Achilles tendon normal.ASSESSMENT/PLAN:1. Sprain of ligament of right ankle, subsequent encounter - ICD9: V58.89,845.00, ICD10: S93.401D-Discussed RICE treatment-Discussed utilizing Ice-keep non-weight baring until seen by orthopedic provider.-Christoph wrap applied- CONSULT TO ORTHOPAEDICS- in 3-5 daysPrescription instructions reviewed with patient as applicable. Patientadvised if symptoms do not improve or if symptoms worsen sooner, tocontact the office for further evaluation by either myself or [facility] physician. Potential red flag symptoms discussed with thepatient. Reviewed appropriate action plan to take if red flag symptomsoccur. Patient agreeable to treatment plan.IVORY Valentin on 2016-10-22 CNOV Office Visit Normal 10-22-2016 Jennifer and (UCWSTR) --------SAW BROWN JR ([id number]) 1965 M Date Time Provider Department10/22/16 1:00 PM MAXX LI) [facility] [place] and During your visit today, we recorded the following information about you: Temperature Pulse Respiration (46992) Blood pressure 98.3 degrees 78/minute 18/minute 132/92 Weight 90.3 kgMaxx Li CNP 10/22/2016 2:01 PM SignedHPIHPI Saw kemp JR is a 50 year old male who presents today for CC ofsprain of right ankle.3 days ago and was see n in ER, had xray performed and nobrake. Swelling and pain are worse now than was when happened. Eduardo esnumbness/tingling in right foot/ankleReview of SystemsConstitutional: Negative for chills, fever a nd weight loss.No past medical history on file.No past surgical history on file.ALLERGIES Review of niharika spear's allergies indicates no known allergies.MEDICATIONSamLODIPine (NORVASC) 5 mg tabletdextroa mphetamine-amphetamine (ADDERALL XR) 30 mg 24 hr capsule Take 30 mg bymouth once daily.escitalopram oxal ate (LEXAPRO) 20 mg tablet Take 20 mg by mouth once daily.HYDROcodone-acetaminop hen (NORCO) 5-325 mg per tablet Take 1 tablet by mouthevery 6 hours as needed.ibuprofen (MOTRIN) 80 0 mg tabletNo family history on file.Social HistorySubstance Use Topics- Smoking status: Former Smoke r- Smokeless tobacco: Not on file- Alcohol use Not on fileBlood pressure 132/92, pulse 78, temperatur e 36.8 ?C (98.3 ?F), temperaturesource Tympanic, resp. rate 18, weight 90.3 kg (199 lb).Physical ExamMus culoskeletal: Right ankle: He exhibits decreased range of motion and swelling. Heexhibits no ecch ymosis, no deformity, no laceration and normal pulse.Tenderness. Lateral malleolus, medial malleolus, AITFL, CF ligament, posteriorTFL and head of 5th metatarsal tenderness found. No proximal fibula te ndernessfound. Achilles tendon normal.ASSESSMENT/PLAN:1. Sprain of ligament of right ankle, subsequent e ncounter - ICD9: V58.89,845.00, ICD10: S93.401D- Discussed RICE treatment-Discussed utilizin g Ice-keep non-weight baring until seen by orthopedic provider.-Christoph wrap applied- CONSULT TO ORTHOPAE DICS- in 3-5 daysPrescription instructions reviewed with patient as applicable. Patient advisedi f symptoms do not improve or if symptoms worsen sooner, to contact the officefor further evaluation by either myself or their primary care physician.Potential red flag symptoms discussed with the patient. Reviewed appropriateaction plan to take if red flag symptoms occur. Patient agreeable to treatmentplan.Roel Valentin CNP 10/22/2016 1:32 PM SignedASSESSMENT/PLAN:1. Spr ain of ligament of right ankle, subsequent encounter - ICD9: V58.89,845.00, ICD10: S93.401D-Discussed RI CE treatment-Discussed utilizing Ice-keep non- weight baring until seen by orthopedic provider.-Christoph wra p applied- CONSULT TO ORTHOPAEDICS- in 3-5 daysReferring Provider: SELF [[id number]]Allergies As of Date: 0 10/22/2016(No Known Allergies)Date Reviewed: 10/22/2016Reviewed by: Maxx Bronson) - Fully AssessedR trudy for Visit: Ankle Injury [1955] Cmt: right ankle pain after rolling it on Primary Visit Debbie gnosis:Sprain of ligament of right ankle, subsequent encounter [S93.401D]Order(s):CONSULT T O ORTHOPAEDICS [9026] Order #: [id number]: 1Prescriptions as of 10/22/2016 Sig: AMLODIPINE 5 MG TABLET DEXTROAMPHETAMINE-AMPHETAMINE* Take 30 mg by mouth once kae* ESCITALOPRAM 20 MG TABLET Ta ke 20 mg by mouth once kae* HYDROCODONE 5 MG- ACETAMINOPHE* Take 1 tablet by mouth every * IBUPROFEN 8 00 MG TABLETMedication notes this encounter AMLODIPINE 5 MG TABLET >> Taylor Khalil Ma 10/22/2016 1:09 PM >> TAYLOR KHALIL MA Oct 22, 2016 1:09 PM Received from: External Pharmacy DEXTROAMPH ETAMINE-AMPHETAMINE ER 30 MG 24HR CAPSULE,EXTEND RELEASE >> Taylor Khalil Ma 10/22/2016 1:09 PM >> TAYLOR HUANG MA Oct 22, 2016 1:09 PM Received from: External Pharmacy Received Sig: take 1 capsule by mouth oncedaily ESCITALOPRAM 20 MG TABLET >> Taylor Khalil Ma 10/22/2016 1:09 PM >> TAYLOR KHALIL MA Oct 22, 2016 1:09 PM Received from: External Pharmacy Received Sig: take 1 tablet by mouth oncedaily HYDROCODONE 5 MG-ACETAMINOPHEN 325 MG TABLET >> Taylor Khalil Ma 10/22/2016 1:09 PM >> TAYLOR KHALIL MA Oct 22, 2016 1:09 PM Received from: External Pharmacy Received Sig: take 1 tablet by mouth every 6hours if needed IBUPROFEN 800 MG TABLET >> Taylor Khalil Ma 10/22/2016 1:09 PM >> REMI MARAVILLAALEJOTAYLORMYRIAM Bowie Oct 22, 2016 1:09 PM Received from: External PharmacyProblem List As Of D ate 10/22/2016 Noted Resolved Cervicalgia [M54.2] INVALID FOR* Backache, unspecified [M54.9] INVALID FOR* Osteoarthrosis involving, or with mention of mo*INVALID FOR* Left shoulder pain [M25.512] INVA LID FOR* Other instructions from your clinician: ASSESSMENT/PLAN: 1. Sprain of ligament of right ankle, subsequent encounter - ICD9: V58.89, 845.00, ICD10: S93.401D -Discussed RICE treatment -Discussed ut ilizing Ice -keep non-weight baring until seen by orthopedic provider. -Christoph wrap applied - CONSULT TO OR THOPAEDICS- in 3-5 daysLetter Alexis Li CNP Urgent [id number] [facility] [address] Dept: [phone]/17/2017[place] [id number] [facility] [place] [address] Whom it May Concern: This is to certify that Saw Brown was seen at our office formedical care. Saw may return to work on 10/24/2016.If you have any questions please feel free to call.Sincerely:Maxx Li CNPEncounter Number: [id number] Status:Closed by MAXX LI CNP on 10/22/16 xr shoulder minimum 2 views right on 2016-09-27 Thyroid stimulating ORIGINALXR SHOULDER 3 Normal 09-27-2016 [facility] hormone (TSH) VIEWS RIGHT CLINICAL [facility] [place] STATEMENT: rt shoulder (20490) pain COMPARISON: None FINDINGS: No fracture or dislocation is identified. The included thoracic structures are normal. There are moderate degenerative changes of the acromioclavicular joint. IMPRESSION: No acute fracture or dislocation. Degenerative changes of the acromioclavicular joint. Interpreted By: Rachael Gerardreliminary Report By: Rachael Gerard MDElectronically Signed By: Rachael Gerard MD Dictated Date: 09/27/2016 4:31:12 PM Prelim Date: 09/27/2016 4:31:12 PM Sign Date: 09/27/2016 4:32:18 PM Encounters Date Type Reason Provider Location 11-15-2016 - [facility] 11[facility]2016 [facility] ([phone]) 11-07-2016 - [facility] 11-07-2016 [facility] ([phone]) 10-24-2016 - [facility] 10[place] [facility] ([id number]) 10-22-2016 - Ambulatory MAXX ([place]) [facility] 10-23-2016 [place] ([phone]) 09-27-2016 - Ambulatory PÉREZ OG Facility: [facility] 09-28-2016 [facility] [place] Payers Payer Name Policy Number Location [facility] [id number] [facility] [place] ([place] ([id number]) The following information is from the original human readable contentNo Payer Records Found Summary Purpose Family History No Family History Records FoundNo Family History Records Found Advance Directives No Advanced Directives Records FoundNo Advanced Directives Records Found Additional Source Comments FOR RECORDS PERTAINING TO PATIENTS WHO ARE OR HAVE BEEN ENROLLED IN A CHEMICAL DEPENDENCY/SUBSTANCE ABUSE PROGRAM, SOME INFORMATION MAY BE OMITTED. This clinical summary was aggregated from multiple sources. Caution should be exercised in using it in the provision of clinical care. This summary normalizes information from multiple sources, and as a consequence, information in this document may materially changethe coding, format and clinical context of patient data. In addition, data may be omittedin some cases. CLINICAL DECISIONS SHOULD BE BASED ON THE PRIMARY CLINICAL RECORDS. [employer] [facility] provides no warranty or guarantee of the accuracy or completeness of information in this document. UNRECOGNIZED CONTENT PROVIDED BELOW FOR UNRECOGNIZED SECTION No Status Records FoundNo Status Records Found UNRECOGNIZED CONTENT PROVIDED BELOW FOR UNRECOGNIZED SECTION INFORMATION SOURCE DATE CREATED AUTHOR AUTHOR'S ORGANIZATIO N 07/31/2017 [facility] DATE CREATED AUTHOR AUTHOR'S ORGANIZATIO N 08/01/2017 [facility] ([place])
== END ==
PROVIDERS: PCP Family Medicine; Referring Provider Internal Medicine Rheumatology; Visit Provider Internal Medicine Rheumatology
DX: M06.4 Inflammatory polyarthropathy (principal); M25.511 Pain in right shoulder; I10 Essential (primary) hypertension; E03.9 Hypothyroidism, unspecified; F32.9 Major depressive disorder, single episode, unspecified; G47.33 Obstructive sleep apnea (adult) (pediatric); Z79.899 Other long term (current) drug therapy
CPT/HCPCS: 36415; 80053; 85025

== ENCOUNTER 2021-01-31 15:18 | Emergency (ER) | payer OTHER, SELFPAY ==
[2021-01-31 15:19] VITALS: BP 155/65; PULSE 88; RESP 20; TEMP 35.8; O2SAT 95; BMI 32.8
--- NOTE | 2021-01-31 16:47 | EX.ED.DYSGE1 ---
HPI History of Present Illness Chief Complaint: Cough Informant: patient Onset/Context/Timing Onset: Weeks Context: Gradual Onset Current Severity: Moderate Maximum Severity: Moderate Narrative Narrative: Patient presents with cough and shortness of breath secondary to bronchitis. Patient states has been sick for the last 3 to 4 weeks. He was seen at an urgent care in early January and told he had a viral bronchitis and there was nothing they could do. Patient states his symptoms continue and have even felt they are worsening. He denies fever or chills. He occasionally feels like he is wheezing. He is coughing up what was green-colored sputum and now turning more clear. He did have a Covid test at the onset of his illness and it was negative. He denies history of COPD. [facility] Medical History (Updated 01/31/21 @ 18:[address] Vicki Juarez MD) Abdominal pain Arthritis Depression History of back problems Hypertension Home Medications escitalopram oxalate 20 mg PO DAILY 10/08/14 [History Last Taken Unknown] amlodipine 5 mg PO DAILY #30 tab 10/10/14 [Rx Last Taken 12/27/18] epinephrine 0.3 mg SQ UD #2 syringe 10/10/14 [Rx Last Taken Unknown] atorvastatin 20 mg PO QHS 07/18/17 [History Last Taken Unknown] ropinirole 0.25 mg tablet 0.25 mg PO QHS 12/06/18 [History Last Taken Unknown] folic acid 2 mg PO DAILY 12/25/18 [History Last Taken Unknown] methotrexate sodium 12.5 mg PO SA 12/25/18 [History Last Taken Unknown] albuterol sulfate [Ventolin HFA] 1 - 2 puff INHALATION Q4H PRN PRN #1 inhaler 01/31/21 [Rx Last Taken Unknown] doxycycline monohydrate 100 mg PO BID #20 cap 01/31/21 [Rx Last Taken Unknown] prednisone 40 mg PO DAILY #10 tab 01/31/21 [Rx Last Taken Unknown] Allergy/AdvReac Type Severity Reaction Status Date / Time YELLOW JACKETS Allergy Anaphylaxis Uncoded 12/27/18 06:42 Family History Mother Arthritis Depression Surgical History History of foot surgery History of tracheostomy s/p right shoulder surgery Social History Smoking Status: Never smoker alcohol intake: current alcohol intake frequency: holidays/special occasions only Alcohol type: beer and wine substance use type: does not use ROS ROS ED Constitutional Constitutional ED: Denies chills or fever(s) Eyes Eyes: Denies change in vision ENT ENT ED: Denies sore throat Cardiovascular Cardiovascular: Denies chest pain Respiratory/Chest Respiratory/Chest: Reports cough, dyspnea and sputum Gastrointestinal Gastrointestinal: Denies abdominal pain, diarrhea, nausea or vomiting Genitourinary Genitourinary ED: Denies dysuria Musculoskeletal Musculoskeletal: Denies back pain Integumentary Denies rash Neurologic Neurologic: Denies headache(s) or weakness Psychiatric Psychiatric: Denies anxiety or depression Allergic/Immunologic Allergic/Immunologic ED: Denies urticaria EXAM Physical Exam Const Vital Signs: 01/31/21 15:19 01/31/21 16:47 01/31/21 17:03 Temperature 96.5 F L Temperature Source Temporal Pulse Rate 88 88 Respiratory Rate 20 H 20 H Respiratory Effort Normal Non-Labored Respiratory Depth Normal Respiratory Pattern Normal Normal Blood Pressure 155/65 H Blood Pressure Mean 95 Pulse Ox 95 Oxygen Delivery Method Room Air Positive well nourished and well developed General Appearance ED: well developed HEENT Reports TM's clear and moist mucous membranes Tympanic Membrane ED: Yes TM's clear Eyes PERRL and EOMs intact bilaterally Neck supple Chest Wall inspection of chest normal and palpation of chest normal Resp normal respiratory effort and clear to auscultation bilaterally Cardio regular rate and regular rhythm GI normal to inspection, nondistended, normoactive bowel sounds and non-tender Palpation: soft Extremity normal to inspection Neuro oriented x3 Sensorium / Orientation: alert Psych mental status grossly normal Skin no rashes or lesions noted MDM MDM MDM Narrative Medical decision making narrative: DuoNeb treatment given. Chest x-ray obtained. Radiography Diagnostic Testing: Clinical Impression(s) from Imaging Studies Chest X-Ray 01/31/21 16:52 IMPRESSION: Normal x-ray examination of the chest. Electronically Signed: Talat Mix MD at 17:04 EST Tel , Service support , Treatment and Re-Evaluation Comments:: On repeat evaluation patient does feel like he is breathing better after the breathing treatment and was able to bring up some more sputum. Chest x-ray is clear per my interpretation. Radiology to rotation also reviewed. On auscultation lung sounds are clear. Patient be discharged with prednisone, doxycycline, albuterol inhaler. Return instructions provided. Discharge Plan Triage Chief Complaint: Cough ED Provider: Vicki Juarez Dx/Rx/DC Orders Clinical Impression: Bronchitis Instructions: ED Bronchitis with Wheezing (Adult) Prescriptions: New doxycycline monohydrate 100 MG capsule 100 mg PO BID Qty: 20 RF: 0 albuterol sulfate [Ventolin HFA] 1 INHALER inhaler 1 - 2 puff inhalation Q4H PRN PRN (Reason: Wheezing) Qty: 1 RF: 0 prednisone 20 mg tablet 40 mg PO DAILY Qty: 10 RF: 0 No Action ropinirole 0.25 mg tablet 0.25 mg PO QHS RF: 0 escitalopram oxalate 20 MG tablet 20 mg PO DAILY RF: 0 amlodipine 5 MG tablet 5 mg PO DAILY Qty: 30 RF: 0 epinephrine 0.3 MG syringe 0.3 mg SQ UD Qty: 2 RF: 0 atorvastatin 20 MG tablet 20 mg PO QHS RF: 0 methotrexate sodium 2.5 MG tablet 12.5 mg PO SA RF: 0 folic acid 1 MG tablet 2 mg PO DAILY RF: 0 Primary Care Provider: Lázaro Mcdonnell Referrals: Lázaro Mcdonnell MD [Primary Care Provider] - 1-2 Weeks Disposition Disposition: Home, Self Care
--- NOTE | 2021-01-31 16:52 | RAD_ITS ---
STUDY: X-RAY CHEST REASON FOR EXAM: Male, 55 years old. cough TECHNIQUE: PA and lateral views of the chest. COMPARISON: 10/07/2014 FINDINGS: The lungs are clear and expanded. There is no demonstrated pleural abnormality. Normal size heart. Normal mediastinum and jo. Normal visualized pulmonary arteries. Normal visualized aortic arch and descending thoracic aorta. Normal visualized thoracic spine. Normal visualized ribs, clavicles, and shoulders. There is no demonstrated abnormality of the visualized soft tissue structures of the upper abdomen. RAD/Chest PA and Lateral IMPRESSION: Normal x-ray examination of the chest. Electronically Signed: Talat Mix MD at 17:04 EST Tel , Service support ,
[2021-01-31] MEDS: Ipratropium/Albuterol Sulfate 3 ML AMPUL.NEB INHALATION (17:02)
[2021-01-31 17:03] VITALS: PULSE 88; RESP 20
== END 2021-01-31 18:17 | disposition home or self-care (01) ==
PROVIDERS: Emergency Provider Emergency Medicine; PCP Internal Medicine
DX: J40 Bronchitis, not specified as acute or chronic (principal)
CPT/HCPCS: 71046; 94640; 99282

== ENCOUNTER 2022-12-21 08:19 | Emergency (ER) | payer OTHER, SELFPAY ==
[2022-12-21 08:19] VITALS: BP 152/90; PULSE 78; RESP 14; TEMP 36.4; O2SAT 99; BMI 33.7
--- NOTE | 2022-12-21 09:00 | EX.ED.DYSGE1 ---
HPI History of Present Illness Chief Complaint: Numb/Ting Narrative Narrative: 57-year-old male who denies significant past medical history except for hypertension presents with problems moving the right side of his face. He recently had a cold over the last week. Yesterday morning when he woke up he noticed he was having problems with numbness and tingling of the right side of his face, and problems moving it. He denies any headache or paresthesias of his arms or legs. He went to sleep last night, and awoke this morning with worsening right side facial paralysis. He went to the nurse at work who sent him for evaluation for Moreira's palsy versus stroke. He denies any other symptoms. [facility] Medical History Abdominal pain Arthritis Depression History of back problems Hypertension Home Medications escitalopram oxalate 20 mg tablet 20 mg PO DAILY 10/08/14 [History Last Taken Unknown] amlodipine 5 mg tablet 5 mg PO DAILY #30 tabs 10/10/14 [Rx Last Taken 12/21/22] epinephrine 0.3 mg/0.3 mL injection, auto-injector 0.3 mg (0.3 mL) SQ UD ##2 10/10/14 [Rx Last Taken Unknown] atorvastatin 20 mg tablet 20 mg PO QHS 07/18/17 [History Last Taken 12/21/22] ropinirole 0.25 mg tablet 0.25 mg PO QHS 12/06/18 [History Last Taken Unknown] folic acid 1 mg tablet 2 mg PO DAILY 12/25/18 [History Last Taken Unknown] methotrexate sodium 2.5 mg tablet 12.5 mg PO SA 12/25/18 [History Last Taken Unknown] doxycycline monohydrate 100 mg capsule 100 mg PO BID #20 caps 01/31/21 [Rx Last Taken Unknown] prednisone 20 mg tablet 40 mg (2 x 20 mg) PO DAILY #10 tabs 01/31/21 [Rx Last Taken Unknown] acyclovir 400 mg tablet 1 tab PO 5X/DAY 10 days #50 tabs 12/21/22 [Rx Last Taken Unknown] doxazosin 2 mg tablet mg 12/21/22 [History Last Taken 12/21/22 06:00 2 mg] prednisone 50 mg tablet 50 mg PO DAILY #5 tabs 12/21/22 [Rx Last Taken Unknown] white petrolatum-mineral oil 56.8 %-42.5 % eye ointment (Refresh Lacri-Lube) 1 applic EACH EYE QHS 10 days #3.5 grams 12/21/22 [Rx Last Taken Unknown] Allergy/AdvReac Type Severity Reaction Status Date / Time insect venom [yellow jacket] Allergy Anaphylaxis Verified 12/21/22 08:21 Family History Mother Arthritis Depression Surgical History History of foot surgery History of tracheostomy s/p right shoulder surgery Social History Smoking Status: Never smoker alcohol intake: current alcohol intake frequency: holidays/special occasions only Alcohol type: beer and wine substance use type: does not use ROS ROS ED ROS Narrative Constitutional: No fever, no chills. HEENT: No sore throat. No neck pain. No loss of vision. No rhinorrhea. Right-sided facial paralysis, mild numbness and tingling. Unable to close right eye completely. Problems moving right side of mouth. Cardiovascular: No chest pain. No palpitations. No pedal edema. Respiratory: No cough, no shortness of breath. Abdominal: No abdominal pain. No nausea. No vomiting. Genitourinary: No dysuria. No hematuria. Musculoskeletal: No myalgias. No arthralgias. Neurologic: No headaches. No dizziness. No lightheadedness. Skin: No rash. No change in color. Psychiatric: No depression. No anxiety. EXAM Physical Exam Narrative Exam Narrative: Afebrile. Vital signs noted. HEENT: Normocephalic. Atraumatic. PERRL, EOMI. Neck soft and supple. No point tenderness or step off. Cardiovascular: Regular rate and rhythm. No murmurs, rubs, or gallops appreciated. Respiratory: No tachypnea. Lungs clear to auscultation bilaterally. Gastrointestinal: Abdomen soft, nontender, with normoactive bowel sounds. No rebound or guarding. Neurological: Awake. Alert. Consistent with Moreira's palsy. Positive involvement of right forehead is unable to raise right eyebrow. Can close eye on right side but not firmly. Positive right-sided facial paralysis/facial droop. Skin: No rash. Normal color. No pallor. Musculoskeletal: No pedal edema. Full range of motion extremities. Const Vital Signs: 12/21/22 08:19 Temperature 97.6 F L Temperature Source Temporal Pulse Rate 78 Respiratory Rate 14 Blood Pressure 152/90 H Blood Pressure Mean 110 Pulse Ox 99 Oxygen Delivery Method Room Air MDM MDM MDM Narrative Medical decision making narrative: In the differential diagnosis was stroke versus Moreira's palsy. Given the patient's direct forehead involvement on the right, I do not feel that CT imaging is indicated, nor do I feel that stroke team is indicated. Additionally he is outside the window for tPA if it would have been a stroke. As this is more classic Moreira's palsy he was given his first dose of acyclovir here along with prednisone 50 mg orally. I wrote him prescription for Lacri-Lube, for acyclovir 400 mg 5 times a day for the next 10 days as his symptoms started within the last 3 days. He will take his prednisone for the next 5 days as well. He was told of the risk of corneal abrasion should he be unable to close his right eye completely over the next few days. He will follow-up with his primary care physician but he was also referred to neurology. I do not feel laboratory work is indicated. I feel he can be discharged safely home with follow-up and that he does not require observation at this time. Disposition is discharged home in stable condition. History & Record Review Discussion w/independent historian: Patient Additional record(s) reviewed:: Prior ED visit Discharge Plan Triage Chief Complaint: Numb/Ting ED Provider: Navdeep Quintero Dx/Rx/DC Orders Clinical Impression: Moreira's palsy Instructions: ED Moreira's Palsy Prescriptions: New prednisone 50 mg tablet 50 mg PO DAILY Qty: 5 0RF acyclovir 400 mg tablet 1 tab PO 5X/DAY 10 Days Qty: 50 0RF Refresh Lacri-Lube 56.8-42.5 % ointment 1 applic EACH EYE QHS 10 Days Qty: 3.5 0RF No Action ropinirole 0.25 mg tablet 0.25 mg PO QHS escitalopram oxalate 20 MG tablet 20 mg PO DAILY amlodipine 5 MG tablet 5 mg PO DAILY Qty: 30 0RF epinephrine 0.3 MG syringe 0.3 mg SQ UD Qty: 2 0RF Rx Instructions: use as needed for severe allergic reaction atorvastatin 20 MG tablet 20 mg PO QHS methotrexate sodium 2.5 MG tablet 12.5 mg PO SA Patient Comments: HOLDING 12/28 DOSE folic acid 1 MG tablet 2 mg PO DAILY doxycycline monohydrate 100 MG capsule 100 mg PO BID Qty: 20 0RF prednisone 20 mg tablet 40 mg PO DAILY Qty: 10 0RF doxazosin 2 mg tablet Patient Comments: take 1 tablet by mouth once daily Primary Care Provider: Lázaro Mcdonnell Referrals: Myron Strickland MD [Non-Staff -Ordering Privileges] - 1 Week Lázaro Mcdonnell MD [Primary Care Provider] - 1 Week if not improving Disposition Disposition: Home, Self Care
[2022-12-21] MEDS: predniSONE 20 MG Tablet 50 MG PO (09:34)
[2022-12-21] MEDS: Acyclovir 200 MG Capsule 400 MG PO (09:34)
[2022-12-21 09:37] VITALS: BP 137/80; PULSE 74; RESP 16
== END 2022-12-21 09:38 | disposition home or self-care (01) ==
PROVIDERS: Emergency Provider Emergency Medicine; PCP Internal Medicine; Visit Provider Emergency Medicine
DX: G51.0 Bell's palsy (principal); I10 Essential (primary) hypertension; Z79.899 Other long term (current) drug therapy
CPT/HCPCS: 99283

== ENCOUNTER 2023-07-30 16:18 | Emergency (ER) | payer OTHER, SELFPAY ==
[2023-07-30 16:20] VITALS: BP 162/94; PULSE 83; RESP 14; TEMP 36.3; O2SAT 97
--- NOTE | 2023-07-30 17:28 | EX.ED.DYSGE1 ---
HPI History of Present Illness Chief Complaint: Abscess Detail of Chief Complaint: Abscess to right axilla Informant: patient Narrative Narrative: Patient presents to the emergency department with concern for an abscess to his right axilla. Patient states that he has had a small lump there for months and months but 3 days ago started becoming more swollen and painful. He denies fevers chills or sweats. Patient has history of hypertension. [facility] Medical History Abdominal pain Arthritis Depression History of back problems Hypertension Home Medications ?Medication ?Instructions ?Recorded ?Last Taken ?Type escitalopram oxalate 20 mg tablet 20 mg PO DAILY 10/08/14 Unknown History amlodipine 5 mg tablet 5 mg PO DAILY #30 tabs 10/10/14 12/21/22 Rx epinephrine 0.3 mg/0.3 mL 0.3 mg (0.3 mL) SQ UD ##2 10/10/14 Unknown Rx injection, auto-injector atorvastatin 20 mg tablet 20 mg PO QHS 07/18/17 12/21/22 History ropinirole 0.25 mg tablet 0.25 mg PO QHS 12/06/18 Unknown History folic acid 1 mg tablet 2 mg PO DAILY 12/25/18 Unknown History methotrexate sodium 2.5 mg tablet 12.5 mg PO SA 12/25/18 Unknown History doxycycline monohydrate 100 mg 100 mg PO BID #20 caps 01/31/21 Unknown Rx capsule prednisone 20 mg tablet 40 mg (2 x 20 mg) PO DAILY #10 tabs 01/31/21 Unknown Rx acyclovir 400 mg tablet 1 tab PO 5X/DAY 10 days #50 tabs 12/21/22 Unknown Rx doxazosin 2 mg tablet mg 12/21/22 12/21/22 06:00 History 2 mg prednisone 50 mg tablet 50 mg PO DAILY #5 tabs 12/21/22 Unknown Rx white petrolatum-mineral oil 56.8 1 applic EACH EYE QHS 10 days #3.5 12/21/22 Unknown Rx %-42.5 % eye ointment (Refresh grams Lacri-Lube) cephalexin 500 mg capsule 500 mg PO Q6 #28 CAPSULES 07/30/23 Unknown Rx Allergy/AdvReac Type Severity Reaction Status Date / Time insect venom (yellow jacket) Allergy Anaphylaxis Verified 07/30/23 16:19 Family History Mother Arthritis Depression Surgical History History of foot surgery History of tracheostomy s/p right shoulder surgery Social History Smoking Status: Never smoker alcohol intake: current alcohol intake frequency: holidays/special occasions only Alcohol type: beer and wine substance use type: does not use ROS ROS ED Review of Systems ROS Unobtainable: other Constitutional Constitutional ED: Reports lethargy; Denies chills, fever(s), sweats or weight loss Eyes Eyes: Denies blurry vision, change in vision or diplopia ENT ENT ED: Denies rhinorrhea or sore throat Cardiovascular Cardiovascular: Denies chest pain, orthopnea or racing heartbeat Respiratory/Chest Respiratory/Chest: Denies cough, dyspnea, dyspnea on exertion, orthopnea or sputum Gastrointestinal Gastrointestinal: Denies abdominal pain, diarrhea, nausea or vomiting Genitourinary Genitourinary ED: Denies dysuria, hematuria or urinary frequency Musculoskeletal Musculoskeletal: Reports other Details: Pain and swelling to right axilla ; Denies arthralgias, back pain, myalgias or neck pain Integumentary Denies abscess, Abrasions or rash Neurologic Neurologic: Denies headache(s) or weakness Psychiatric Psychiatric: Denies anxiety, depression or suicidal thoughts Endocrine Endocrinology: Denies polydipsia, polyphagia or polyuria Hematologic/Lymphatic Hematologic/Lymphatic: Denies easy bleeding, easy bruising or lymphadenopathy Allergic/Immunologic Allergic/Immunologic ED: Denies mouth swelling, tongue swelling or urticaria EXAM Physical Exam Const Vital Signs: 07/30/23 16:20 Temperature 97.3 F L Temperature Source Temporal Pulse Rate 83 Respiratory Rate 14 Blood Pressure 162/94 H Blood Pressure Mean 116 Pulse Ox 97 Oxygen Delivery Method Room Air Positive well nourished and well developed General Appearance ED: well developed and NAD HEENT Reports TM's clear and moist mucous membranes normocephalic and atraumatic; Negative for trauma or tenderness Tympanic Membrane ED: Yes TM's clear Eyes PERRL and EOMs intact bilaterally General Eye ED: Negative for pale conjunctiva or scleral icterus Neck no lymphadenopathy, supple and no JVD General: Negative for tenderness Chest Wall inspection of chest normal and palpation of chest normal Chest: Negative for tenderness Resp normal respiratory effort and clear to auscultation bilaterally Effort and Inspection: Negative for respiratory distress or pain with movement Auscultation: Negative for rhonchi, wheezes or diminished lung sounds Cardio regular rate, regular rhythm, S1 normal heart sound, S2 normal heart sound and no murmurs Peripheral Pulses: pulses 2+ throughout GI normal to inspection, nondistended, normoactive bowel sounds, soft to palpation, non-tender, non-distended and no masses Back/Spine no CVA tenderness and no thoracic nor lumbar tenderness Extremity Extremity Narrative: Right axilla-patient has soft tissue swelling measuring approximately 3 x 2 cm that is tender to palpation and fluctuant. There are some faint erythema. Minimal cellulitic changes otherwise. Clinically consistent with an abscess. General Extremety ED: Negative for edema General Extremity: Negative for edema Neuro oriented x3, CN's II-XII intact bilaterally, no sensory deficits noted and gait normal Sensorium / Orientation: awake, alert, oriented to person, oriented to place and oriented to time Motor Exam: strength 5/5 throughout and strength abnormal Psych mental status grossly normal Skin no rashes or lesions noted and no wounds MDM MDM MDM Narrative Medical decision making narrative: Patient with abscess to right axilla. Recommended incision and drainage. Patient in agreement. He does not want any anesthetic. Please see procedure note. After I&D clean dressing applied. Will be started on Keflex for 7 days. Advised return if increasing pain, redness, swelling, purulent drainage, or condition worsening way. Procedures Other Procedures Procedure(s): Incision and drainage of suspected right axilla abscess. Skin cleansed with Shur-Clen. Using an 11 blade a 1 cm incision was made into the most fluctuant portion of the suspected abscess and large amount of free-flowing purulent debris was expressed. Cavity irrigated with saline after the purulent debris was expressed. Clean dressing applied. Patient tolerated procedure well. Discharge Plan Triage Chief Complaint: Abscess ED Provider: Myriam Clark Dx/Rx/DC Orders Clinical Impression: Abscess of axilla, right Instructions: ED Abscess Incision And Drainage Prescriptions: New cephalexin 500 mg capsule 500 mg PO Q6 Qty: 28 0RF No Action ropinirole 0.25 mg tablet 0.25 mg PO QHS escitalopram oxalate 20 MG tablet 20 mg PO DAILY amlodipine 5 MG tablet 5 mg PO DAILY Qty: 30 0RF epinephrine 0.3 MG syringe 0.3 mg SQ UD Qty: 2 0RF Rx Instructions: use as needed for severe allergic reaction atorvastatin 20 MG tablet 20 mg PO QHS methotrexate sodium 2.5 MG tablet 12.5 mg PO SA Patient Comments: HOLDING 12/28 DOSE folic acid 1 MG tablet 2 mg PO DAILY doxycycline monohydrate 100 MG capsule 100 mg PO BID Qty: 20 0RF prednisone 20 mg tablet 40 mg PO DAILY Qty: 10 0RF doxazosin 2 mg tablet Patient Comments: take 1 tablet by mouth once daily prednisone 50 mg tablet 50 mg PO DAILY Qty: 5 0RF acyclovir 400 mg tablet 1 tab PO 5X/DAY 10 Days Qty: 50 0RF Refresh Lacri-Lube 56.8-42.5 % ointment 1 applic EACH EYE QHS 10 Days Qty: 3.5 0RF Primary Care Provider: Lázaro Mcdonnell Referrals: Lázaro Mcdonnell MD [Primary Care Provider] - 3-5 Days Print Language: Congolese Disposition Disposition: Home, Self Care
[2023-07-30 17:43] VITALS: BP 152/94; PULSE 87; RESP 16; TEMP 36.4; O2SAT 97
== END 2023-07-30 17:53 | disposition home or self-care (01) ==
LOC: ED 17:50
PROVIDERS: Emergency Provider Emergency Medicine; PCP Internal Medicine; Visit Provider Emergency Medicine
DX: L02.411 Cutaneous abscess of right axilla (principal)
CPT/HCPCS: 10060; 99282

== ENCOUNTER 2023-12-10 11:40 | Emergency (ER) | payer OTHER, SELFPAY ==
[2023-12-10 11:41] VITALS: BP 164/102; PULSE 77; RESP 18; TEMP 36; O2SAT 95; BMI 33.0
--- NOTE | 2023-12-10 11:51 | EDS_ITS ---
HPI <AYSHA Sky - Last Filed: 12/10/23 12:29> History of Present Illness Chief Complaint: Chest Other Narrative Narrative: Patient states he slipped on gravel 2 days ago and landed on his left shoulder and his elbow was jammed into his rib cage. Since then he has had pain in the left anterior ribs. 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 It hurts with movement or taking a deep breath. He has no difficulty breathing. He has no swelling or bruising. He has no pain in the shoulder or left upper extremity. He is not on aspirin or blood thinners. <Dr. Myriam Clark DO - Last Filed: 12/10/23 12:33> History of Present Illness Detail of Chief Complaint: Left rib injury [facility] <AYSHA Sky - Last Filed: 12/10/23 12:29> [facility] Medical History Abdominal pain Arthritis Depression History of back problems Hypertension Home Medications ?Medication ?Instructions ?Recorded ?Last Taken ?Type escitalopram oxalate 20 mg tablet 20 mg PO DAILY 10/08/14 Unknown History amlodipine 5 mg tablet 5 mg PO DAILY #30 tabs 10/10/14 12/21/22 Rx epinephrine 0.3 mg/0.3 mL 0.3 mg (0.3 mL) SQ UD ##2 10/10/14 Unknown Rx injection, auto-injector atorvastatin 20 mg tablet 20 mg PO QHS 07/18/17 12/21/22 History ropinirole 0.25 mg tablet 0.25 mg PO QHS 12/06/18 Unknown History folic acid 1 mg tablet 2 mg PO DAILY 12/25/18 Unknown History methotrexate sodium 2.5 mg tablet 12.5 mg PO SA 12/25/18 Unknown History doxycycline monohydrate 100 mg 100 mg PO BID #20 caps 01/31/21 Unknown Rx capsule prednisone 20 mg tablet 40 mg (2 x 20 mg) PO DAILY #10 tabs 01/31/21 Unknown Rx acyclovir 400 mg tablet 1 tab PO 5X/DAY 10 days #50 tabs 12/21/22 Unknown Rx doxazosin 2 mg tablet mg 12/21/22 12/21/22 06:00 History 2 mg prednisone 50 mg tablet 50 mg PO DAILY #5 tabs 12/21/22 Unknown Rx white petrolatum-mineral oil 56.8 1 applic EACH EYE QHS 10 days #3.5 12/21/22 Unknown Rx %-42.5 % eye ointment (Refresh grams Lacri-Lube) cephalexin 500 mg capsule 500 mg PO Q6 #28 CAPSULES 07/30/23 Unknown Rx oxycodone-acetaminophen 5 mg-325 1 tab PO Q6H PRN pain 3 days #12 12/10/23 Unknown Rx mg tablet (Percocet) tabs Allergy/AdvReac Type Severity Reaction Status Date / Time insect venom (yellow jacket) Allergy Anaphylaxis Verified 12/10/23 11:41 Family History Mother Arthritis Depression Surgical History History of foot surgery History of tracheostomy s/p right shoulder surgery Social History Smoking Status: Never smoker alcohol intake: current alcohol intake frequency: holidays/special occasions only Alcohol type: beer and wine substance use type: does not use ROS <AYSHA Sky - Last Filed: 12/10/23 12:29> ROS ED ROS Narrative CVS: Negative for chest pain. Respiratory: Negative for shortness of breath. GI: Negative for abdominal pain, nausea, vomiting. EXAM <AYSHA Sky - Last Filed: 12/10/23 12:29> Physical Exam Narrative Exam Narrative: CONST: Patient sitting in no acute distress. EYES: Normal inspection. NECK: Normal inspection. RESP: No respiratory distress, CTAB. CVS: Regular rate and rhythm, no murmur, no gallop. Tender palpation left anterior lateral ribs just under the breast, no deformity or crepitus, no swelling or bruising. ABD: Soft and nontender, no guarding or rebound, nondistended. Back: Normal inspection, no midline or flank tenderness. SKIN: Color normal, no rash, warm, dry, intact. EXTREMITIES: Normal appearance, no pedal edema. NEURO: Alert and answering questions appropriately. PSYCH: Normal affect. Const Vital Signs: 12/10/23 11:41 Temperature 96.8 F L Temperature Source Temporal Pulse Rate 77 Respiratory Rate 18 Blood Pressure 164/102 H Blood Pressure Mean 122 Pulse Ox 95 Oxygen Delivery Method Room Air <Dr. Myriam Clark DO - Last Filed: 12/10/23 12:33> Physical Exam Const Vital Signs: 12/10/23 11:41 Temperature 96.8 F L Temperature Source Temporal Pulse Rate 77 Respiratory Rate 18 Blood Pressure 164/102 H Blood Pressure Mean 122 Pulse Ox 95 Oxygen Delivery Method Room Air MDM <AYSHA Sky - Last Filed: 12/10/23 12:29> [facility] Narrative Medical decision making narrative: Differential included but not limited to rib contusion, rib fracture, pneumothorax Patient had a mechanical fall 2 days ago injuring his left rib cage. He appears well and nontoxic. Vital signs stable. He has no external evidence of trauma, normal heart and lung sounds, is tender over left anterior lateral ribs without deformity or crepitus. Rib series x-rays show a nondisplaced left 10th rib fracture. No pneumothorax. Patient was prescribed Percocet he states he will take at night and given a light duty work note x 1 week. He was comfortable with this plan and discharged in stable condition. I have personally performed a face to face assessment of the patient and have reviewed the MEAGAN Note. I performed a substantive portion of the visit including all aspects of the following. My esteban findings include: History is [patient presents to the emergency department with complaint of inju ry to his left chest and ribs that occurred 2 days ago. Patient states that he slipped on the gravel driveway and landed on his left shoulder and he thinks he drove his elbow into his ribs. He complains of pain with movement and deep breath. He denies feeling short of breath. He denies hemoptysis. Denies other injuries. He is not anticoagulated.] Exam is [HEENT-PERRLA, EOMI. Cranial nerves II through XII grossly intact. TMs clear. Mucous membranes moist. No adenopathy. Cardiovascular-regular rate and rhythm without murmur or ectopy Lungs-clear to auscultation, chest wall stable without crepitus or subcu emphysema. Patient has some tenderness palpation over the left chest wall in the mid axillary line. There is no crepitus or subcu eczema. There is no ecchymosis or bruising. Abdomen-normoactive bowel sounds, soft, nontender, no rebound or rigidity, no peritoneal signs. Extremities-intact ?4, normal range of motion, normal pulses, atraumatic] Medical Decison Making [patient with injury to his left chest. Will obtain rib series.] Other additions or changes: [None] Radiography Diagnostic Testing: Clinical Impression(s) from Imaging Studies Ribs w/Chest X-Ray 12/10/23 12:00 IMPRESSION: RIBS: Nondisplaced fracture of the posterolateral aspect of the left 10th rib. CHEST: Mild increased markings at the left lung base suggestive of atelectasis. Electronically Signed: Marcus Waldrop MD at 12:19 EST , ED attending interpretation of chest and left rib series shows no pneumothorax, left 10th rib fracture. <Dr. Myriam Clark, DO - Last Filed: 12/10/23 12:33> [facility] MDM Narrative Medical decision making narrative: Differential included but not limited to rib contusion, rib fracture, pneumothorax Patient had a mechanical fall 2 days ago injuring his left rib cage. He appears well and nontoxic. Vital signs stable. He has no external evidence of trauma, normal heart and lung sounds, is tender over left anterior lateral ribs without deformity or crepitus. Rib series x-rays show a nondisplaced left 10th rib fracture. No pneumothorax. Patient was prescribed Percocet he states he will take at night and given a light duty work note x 1 week. He was comfortable with this plan and discharged in stable condition. I have personally performed a face to face assessment of the patient and have reviewed the MEAGAN Note. I performed a substantive portion of the visit including all aspects of the following. My esteban findings include: History is [patient presents to the emergency department with complaint of injury to his left chest and ribs that occurred 2 days ago. Patient states that he slipped on the gravel driveway and landed on his left shoulder and he thinks he drove his elbow into his ribs. He complains of pain with movement and deep breath. He denies feeling short of breath. He denies hemoptysis. Denies other injuries. He is not anticoagulated.] Exam is [HEENT-PERRLA, EOMI. Cranial nerves II through XII grossly intact. TMs clear. Mucous membranes moist. No adenopathy. Cardiovascular-regular rate and rhythm without murmur or ectopy Lungs-clear to auscultation, chest wall stable without crepitus or subcu emphysema. Patient has some tenderness palpation over the left chest wall in the mid axillary line. There is no crepitus or subcu eczema. There is no ecchymosis or bruising. Abdomen-normoactive bowel sounds, soft, nontender, no rebound or rigidity, no peritoneal signs. Extremities-intact ?4, normal range of motion, normal pulses, atraumatic] Medical Decison Making [patient with injury to his left chest. Will obtain rib series. On my interpretation it is noted that he has 1/10 rib fracture nondisplaced. No evidence of pneumothorax. Radiology in agreement. Patient will be treated with Percocet and also on incentive spirometer. Advised to return if worsening pain, shortness of breath, hemoptysis, or condition worsening way.] Other additions or changes: [None] Radiography Diagnostic Testing: Clinical Impression(s) from Imaging Studies Ribs w/Chest X-Ray 12/10/23 12:00 IMPRESSION: RIBS: Nondisplaced fracture of the posterolateral aspect of the left 10th rib. CHEST: Mild increased markings at the left lung base suggestive of atelectasis. Electronically Signed: Marcus Waldrop MD at 12:19 EST , Discharge Plan Triage Chief Complaint: Chest Other ED Midlevel Provider: Phylicia Mancini ED Provider: Myriam Clark Dx/Rx/DC Orders Clinical Impression: Left rib fracture Instructions: ED Rib Fracture Prescriptions: New oxycodone-acetaminophen [Percocet] 5-325 mg tablet 1 tab PO Q6H PRN (Reason: pain) 3 Days Qty: 12 0RF No Action ropinirole 0.25 mg tablet 0.25 mg PO QHS escitalopram oxalate 20 MG tablet 20 mg PO DAILY amlodipine 5 MG tablet 5 mg PO DAILY Qty: 30 0RF epinephrine 0.3 MG syringe 0.3 mg SQ UD Qty: 2 0RF Rx Instructions: use as needed for severe allergic reaction atorvastatin 20 MG tablet 20 mg PO QHS methotrexate sodium 2.5 MG tablet 12.5 mg PO SA Patient Comments: HOLDING 12/28 DOSE folic acid 1 MG tablet 2 mg PO DAILY doxycycline monohydrate 100 MG capsule 100 mg PO BID Qty: 20 0RF prednisone 20 mg tablet 40 mg PO DAILY Qty: 10 0RF doxazosin 2 mg tablet Patient Comments: take 1 tablet by mouth once daily prednisone 50 mg tablet 50 mg PO DAILY Qty: 5 0RF acyclovir 400 mg tablet 1 tab PO 5X/DAY 10 Days Qty: 50 0RF Refresh Lacri-Lube 56.8-42.5 % ointment 1 applic EACH EYE QHS 10 Days Qty: 3.5 0RF cephalexin 500 mg capsule 500 mg PO Q6 Qty: 28 0RF Stand Alone Forms: ED Work / School Excuse Primary Care Provider: Lázaro Mcdonnell Referrals: Lázaro Mcdonnell MD [Primary Care Provider] - Print Language: Amharic Disposition Disposition: Home, Self Care
--- NOTE | 2023-12-10 12:00 | RAD_ITS ---
STUDY: X-RAY - UNILATERAL RIBS ( LEFT ) WITH CHEST REASON FOR EXAM: Male, 58 years old. Anterior left rib pain following a recent fall. TECHNIQUE - RIBS: 4 view(s) of the ribs. TECHNIQUE - CHEST: Single PA view of the chest. COMPARISON: Comparison is made with prior chest radiograph dated January 31, 2021. FINDINGS - RIBS: Nondisplaced fracture of the posterior-lateral aspect of the left 10th rib. FINDINGS - CHEST: Mild increased markings at the left lung base suggestive of left basilar atelectasis. There is blunting of the left costo phrenic angle. Normal size heart. Normal mediastinum and jo. Normal visualized pulmonary arteries. There is atherosclerotic tortuosity of the aortic arch and descending thoracic aorta. There are degenerative changes of the visualized thoracic spine. Normal visualized ribs, clavicles, and shoulders. There is no demonstrated abnormality of the visualized soft tissue structures of the upper abdomen. RAD/Ribs Uni Min 3V w/PA Chest IMPRESSION: RIBS: Nondisplaced fracture of the posterolateral aspect of the left 10th rib. CHEST: Mild increased markings at the left lung base suggestive of atelectasis. Electronically Signed: Marcus Waldrop MD at 12:19 EST ,
== END 2023-12-10 12:48 | disposition home or self-care (01) ==
PROVIDERS: Emergency Provider Emergency Medicine; PCP Internal Medicine; Visit Provider Emergency Medicine
DX: S22.32XA Fracture of one rib, left side, initial encounter for closed fracture (principal); W01.0XXA Fall on same level from slipping, tripping and stumbling without subsequent striking against object, initial encounter; I10 Essential (primary) hypertension; M19.90 Unspecified osteoarthritis, unspecified site; F32.A Depression, unspecified; Z79.899 Other long term (current) drug therapy
CPT/HCPCS: 71101; 99282

== ENCOUNTER → 2024-03-20 | Outpatient (CLI) | payer OTHER, SELFPAY ==
[2024-03-20 13:00] LABS: Protein, Urine (Random) 80.5 mg/dL (<11.9); Protein:Creat Ratio 5127 mg/g CRE (0-200)
[2024-03-20 13:09] LABS: ALB/GLOB Ratio 0.9 RATIO (0.9-2.4); AST(SGOT) 21 U/L (15-37); Alanine Aminotransfer ALT/SGPT 31 U/L (16-61); Albumin, Serum 3.5 g/dL (3.2-5.0); Alkaline Phosphatase 90 U/L (45-117); Anion Gap 6 (5-15); BUN 13 mg/dL (7-18); BUN/Creat Ratio 12.7 RATIO (10-20); Chloride 104 mmol/L (98-107); Creatinine, Serum 1.02 mg/dL (0.70-1.30); EST Glomerular Filtration Rate 80 mL/min (>60); Est Glom Filt Rate - Afr Amer 97 mL/min (>60); Glucose 190 mg/dL (74-106); Potassium 3.9 mmol/L (3.5-5.1); Protein, Total 7.5 g/dL (6.4-8.2); Sodium Level 138 mmol/L (136-145)
== END | disposition home or self-care (01) ==
LOC: LAB 12:19
PROVIDERS: PCP Internal Medicine; Referring Provider Internal Medicine Nephrology; Visit Provider Internal Medicine Nephrology
DX: E11.21 Type 2 diabetes mellitus with diabetic nephropathy (principal)
CPT/HCPCS: 36415; 80053; 82570; 84156

== ENCOUNTER → 2024-06-18 | Outpatient (CLI) | payer OTHER, SELFPAY ==
[2024-06-18 14:40] LABS: Protein:Creat Ratio 2102 mg/g CRE (0-200)
== END | disposition home or self-care (01) ==
LOC: LAB 12:02
PROVIDERS: PCP Internal Medicine; Referring Provider Internal Medicine Nephrology; Visit Provider Internal Medicine Nephrology
DX: E11.21 Type 2 diabetes mellitus with diabetic nephropathy (principal)
CPT/HCPCS: 82570; 84156